=== PATIENT | female | born 1930 | race Caucasian/White ===

== ENCOUNTER 2017-10-16 14:13 | Inpatient (IN) ==
[2017-10-16] MEDS ORDERED: Ipratropium/Albuterol Neb 3 ML IH ONE (14:16)
--- NOTE | 2017-10-16 14:21 | Emergency Department Note ---
Disposition Clinical Impression: Healthcare-associated pneumonia Disposition: Admitted As Inpatient Condition: Good Referrals: Frank Hodge Jr, MD [Primary Care Provider] - Forms: ED Satisfaction Letter SOB HPI - General Chief Complaint: ED Shortness of Breath/Dyspnea Stated Complaint: shortness of breath Time Seen by Provider: 10/16/17 14:15 Source: patient Mode of arrival: EMS Limitations: age Nursing Notes Reviewed: Yes Vital Signs Reviewed: Yes - History of Present Illness 87-year-old female history of CVA, hypertension, hyperlipidemia, CHF, COPD who presents to the ER from residential facility due to shortness of breath. EMS reports cough for 3 days in duration without production. Upon arrival the patient was noted to be 90% on room air with no prior requirement for oxygen. She was placed on 2 L given a breathing treatment. Oxygen saturation improved. Patient brought in for evaluation. She is alert and oriented 2. She is a poor historian. She currently denies any complaints. Pt Subjective Complaint: shortness of breath, cough Onset (ago): day(s) Context: recent illness Severity: mild Consistency/Duration: other Improves with: nothing Worsens with: nothing Known history of: COPD, congestive heart failure Associated symptoms: Reports: denies other symptoms Treatment prior to arrival: oxygen, bronchodilator Cough present: Yes Cough Description: Involuntary Cough Frequency: Intermittent Sputum production: No Sputum Amount: None - Related Data Home oxygen amount: none Home Medications Medication Instructions Recorded Confirmed Clopidogrel [Plavix] 75 mg PO DAILY 12/10/15 10/16/17 Cyanocobalamin (Vitamin B-12) 1,000 mcg IM QMONTH 12/10/15 10/16/17 [B-12 Compliance] Felodipine [Felodipine ER] 2.5 mg PO DAILY 12/10/15 10/16/17 Furosemide [Lasix] 20 mg PO DAILY 12/10/15 10/16/17 Losartan [Cozaar] 50 mg PO BID 12/10/15 10/16/17 Simvastatin [Zocor] 20 mg PO HS 12/10/15 10/16/17 Terazosin [Hytrin] 5 mg PO DAILY 12/10/15 10/16/17 Albuterol Neb [Proventil Neb] 2.5 mg IH Q6H PRN 07/07/16 10/16/17 DiphenhydraMINE [Benadryl] 25 mg PO HS PRN 10/16/17 10/16/17 Donepezil HCl [Aricept] 10 mg PO HS 10/16/17 10/16/17 Memantine HCl [Namenda Xr] 21 mg PO DAILY 10/16/17 10/16/17 Propranolol LA (24 HR) [Inderal LA] 60 mg PO DAILY 10/16/17 10/16/17 Allergies Allergy/AdvReac Type Severity Reaction Status Date / Time No Known Allergies Allergy Verified 07/07/16 14:27 All systems ED: reviewed and negative except as stated. Constitutional: Denies: fever Cardiovascular: Denies: chest pain Respiratory: Reports: cough, dyspnea Gastrointestinal: Denies: abdominal pain, nausea, vomiting Past Medical History - Past Medical History Attestation: Yes The following information was validated with the patient. Source: patient, old records reviewed Medical history: Reports: COPD, dementia, hyperlipidemia, hypertension, myocardial infarction, TIA, other Surgical history: Reports: other Psychiatric history: Reports: no psych history - Social History Smoking Status: Never smoker Alcohol use: Reports: none Drug use: Reports: none Physical Exam - General Limitations: no limitations General appearance: alert, in no apparent distress - Head Head exam: atraumatic, normocephalic - Eye Eye exam: Present: normal appearance - ENT ENT exam: normal exam - Neck Neck exam: Present: normal inspection, full ROM - Chest Chest inspection: Present: normal inspection, symmetric chest wall rise - Respiratory Respiratory exam: Present: wheezes (Mild end-expiratory wheezing with bilateral rhonchi.). Absent: respiratory distress, prolonged expiratory phase - Cardiovascular Cardiovascular exam: Present: regular rate, normal rhythm, normal heart sounds - Abdominal Exam Abdominal exam: Present: soft, Non-Tender. Absent: tenderness - Extremities Exam Extremities exam: Present: normal inspection, full ROM - Expanded Upper Extremity Exam Shoulder exam: Present: normal inspection, full ROM Arm exam: Present: normal inspection, full ROM Elbow exam: Present: normal inspection, full ROM Forearm/Wrist exam: Present: normal inspection, full ROM Hand exam: Present: normal inspection, full ROM - Expanded Lower Extremity Exam Hip/Pelvis exam: Present: normal inspection, full ROM Upper leg exam: Present: normal inspection, full ROM Knee exam: Present: normal inspection, full ROM Lower leg exam: Present: normal inspection, full ROM Ankle exam: Present: normal inspection, full ROM Foot/toe exam: Present: normal inspection, full ROM Neurovascular/Tendon exam: Absent: motor deficit, sensory deficit - Neurological Exam Neurological exam: Present: alert, other (Alert and oriented 2. She answers most questions with no however she is interactive. GCS 15. Nonfocal exam.) - Psychiatric Psychiatric exam: Present: normal affect - Skin Skin exam: Present: warm, dry, intact Course Course Narrative: Patient seen and examined. We will obtain an EKG, chest x-ray as well as labs. 2 additional DuoNeb treatments ordered. - Reevaluation(s) Reevaluation #1: I spoke with a family friend in the [place] about the patient's current status. Patient will be admitted for pneumonia. Friend reports she will be around for a while. Vital Signs Temperature 99.5 F 10/16/17 14:14 Pulse Rate 85 10/16/17 14:14 Respiratory Rate 18 10/16/17 14:14 Blood Pressure 149/77 10/16/17 14:14 O2 Sat by Pulse Oximetry 92 10/16/17 14:14 Temperature 99.5 F 10/16/17 14:14 Pulse Rate 75 10/16/17 19:44 Respiratory Rate 18 10/16/17 19:44 Blood Pressure 148/71 10/16/17 19:44 O2 Sat by Pulse Oximetry 94 10/16/17 19:44 Oxygen Delivery Oxygen Delivery Nasal Cannula Shortness of Breath/Dyspnea - [facility] Narrative Medical decision making narrative: 87-year-old female presents to the ER due to cough and shortness of breath for 3 days. From residential facility. She is a poor historian here. Noted to be 90% on room air upon EMS arrival. On 2 L saturating 95-97%. EKG dementias no ischemic findings. Chest x-ray with concern for developing bilateral lower lobe pneumonia. White count of 17. Patient given vancomycin and Zosyn and Levaquin and admitted for healthcare associated pneumonia. - Lab Data Lab results reviewed: Yes I reviewed the patient's lab results. Result diagrams: 10/16/17 14:33 10/16/17 14:33 Lab Results 10/16/17 10/16/17 10/16/17 Range/Units 14:33 14:33 14:33 WBC 17.0 H (4.3-11.1) K/mcL RBC 3.34 L (3.82-4.97) M/mcL Hgb 10.3 L (11.5-15.4) g/dL Hct 32.5 L (35.3-44.9) % MCV 97.3 (83.0-100.0) fL MCH 30.8 (28.0-33.3) pg MCHC 31.7 (31.6-35.5) g/dL RDW 12.8 (11.5-14.5) % Plt Count 374 (140-400) K/mcL MPV 10.9 (9.4-12.4) fL Immature Gran % 1.2 (0-4) % Seg Neutrophils % 89.0 % Lymphocytes % 2.1 % Monocytes % 7.4 % Eosinophils % 0.2 % Basophils % 0.1 % Neutrophils # 15.1 H (1.6-8.9) K/mcL Lymphocytes # 0.4 L (0.6-4.6) K/mcL Monocytes # 1.3 (0.0-1.3) K/mcL Eosinophils # 0.0 (0.0-0.6) K/mcL Basophils # 0.0 (0.0-0.2) K/mcL Sodium 139 (136-145) mEq/L Potassium 3.5 (3.5-5.1) mEq/L Chloride 99 (98-107) mEq/L Carbon Dioxide 34 H (23-29) mEq/L BUN 6 L (8-23) mg/dL Creatinine 0.58 L (0.60-1.20) mg/dL Est GFR ( Amer) > 60 (> 60) Est GFR (Non-Af Amer) > 60 (> 60) BUN/Creatinine Ratio 10 (6-26) Glucose 175 H (70-105) mg/dL Calculated Osmolality 290 (280-300) Lactic Acid (0.5-2.2) mmol/L Calcium 8.7 (8.6-10.3) mg/dL Troponin I < 0.03 (< 0.04) ng/mL B-Natriuretic Peptide (Less than 100) pg/mL 10/16/17 10/16/17 Range/Units 14:33 15:48 WBC (4.3-11.1) K/mcL RBC (3.82-4.97) M/mcL Hgb (11.5-15.4) g/dL Hct (35.3-44.9) % MCV (83.0-100.0) fL MCH (28.0-33.3) pg MCHC (31.6-35.5) g/dL RDW (11.5-14.5) % Plt Count (140-400) K/mcL MPV (9.4-12.4) fL Immature Gran % (0-4) % Seg Neutrophils % % Lymphocytes % % Monocytes % % Eosinophils % % Basophils % % Neutrophils # (1.6-8.9) K/mcL Lymphocytes # (0.6-4.6) K/mcL Monocytes # (0.0-1.3) K/mcL Eosinophils # (0.0-0.6) K/mcL Basophils # (0.0-0.2) K/mcL Sodium (136-145) mEq/L Potassium (3.5-5.1) mEq/L Chloride (98-107) mEq/L Carbon Dioxide (23-29) mEq/L BUN (8-23) mg/dL Creatinine (0.60-1.20) mg/dL Est GFR ( Amer) (> 60) Est GFR (Non-Af Amer) (> 60) BUN/Creatinine Ratio (6-26) Glucose (70-105) mg/dL Calculated Osmolality (280-300) Lactic Acid 0.7 (0.5-2.2) mmol/L Calcium (8.6-10.3) mg/dL Troponin I (< 0.04) ng/mL B-Natriuretic Peptide 249 H (Less than 100) pg/mL - Radiology Data Radiology results reviewed: Yes I reviewed the patient's radiology results. Chest X-Ray 10/16/17 14:16 IMPRESSION: Airspace opacities at the bilateral lung bases, right more than left, likely related to atelectasis versus pneumonia. Small right pleural effusion. D/ / Parth Kim MD / Parth Kim MD Interpreting Provider: Parth Kim MD - EKG Data EKG attestation: Yes I reviewed and interpreted this EKG. EKG results narrative: EKG demonstrated sinus rhythm with the rate of 82 bpm. Right axis deviation. Poor R-wave progression. Normal intervals. No gross ST elevations or depressions. No acute ischemic findings. Harmony - Harmony Situation: Demographics, MOA Background: Presenting Complaint, Relevant PMH, Meds, & Allergies Assessment: Vital Signs, Course and respsone to treatment, Exam Concerns, Patient/Family Expectation, Pertinant Lab Results Recommendation: Barrier(s) to disposition, Recommendation based on pending studies, treatments, or consults Harmony Report Given to: Dr. Eb Antunez Repor Time: 19:49
--- NOTE | 2017-10-16 14:23 | Emergency Department Note ---
START Narrative - START START: I examined this patient and my medical decision-making was reviewed with the SENIOR ENGINEERING MANAGER/PA/Advanced Practice Nurse/Resident Physician. I agree with the documented findings, disposition and treatment plan as described except to the extent set forth below. ED attending: Patient's emergency medicine resident Dr. Delfino Headley. Please see copy of this note for H&P evaluation and management and ED disposition. We both had independent [id number] time in contact with this patient. Briefly: 87-year-old female I EMS from [facility] facility for shortness of breath. Patient is a dry cough for several days. No fever or sputum no chest pain patient has advanced senile dementia and answers "no" to most questions. Mild expiratory wheezes [facility]. Patient will get chest x-ray EKG screening labs and urinalysis. Disposition pending.
[2017-10-16 14:45] LABS: Basophils % 0.1 %; Eosinophils % 0.2 %; Hematocrit 32.5 % (35.3-44.9); Hemoglobin 10.3 g/dL (11.5-15.4); Immature Granulocytes % 1.2 % (0-4); Lymphocytes # 0.4 K/mcL (0.6-4.6); Lymphocytes % 2.1 %; Mean Corpuscular HGB Conc 31.7 g/dL (31.6-35.5); Mean Corpuscular Hemoglobin 30.8 pg (28.0-33.3); Mean Corpuscular Volume 97.3 fL (83.0-100.0); Mean Platelet Volume 10.9 fL (9.4-12.4); Monocytes # 1.3 K/mcL (0.0-1.3); Monocytes % 7.4 %; Neutrophils # 15.1 K/mcL (1.6-8.9); Platelet Count 374 K/mcL (140-400); Red Blood Count 3.34 M/mcL (3.82-4.97); Red Cell Distribution Width 12.8 % (11.5-14.5)
[2017-10-16 15:00] LABS: BUN/Creatinine Ratio 10 (6-26); Blood Urea Nitrogen 6 mg/dL (8-23); Calcium 8.7 mg/dL (8.6-10.3); Carbon Dioxide 34 mEq/L (23-29); Chloride 99 mEq/L (98-107); Glucose 175 mg/dL (70-105); Osmolality,Calculated 290 (280-300); Potassium 3.5 mEq/L (3.5-5.1); Sodium 139 mEq/L (136-145); eGFR For African Americans > 60 (> 60); eGFR For Non-African Americans > 60 (> 60)
[2017-10-16] MEDS ORDERED: Vancomycin 1,000 MG in D5% in Water 250 ML IVPB ONE (15:27)
[2017-10-16] MEDS ORDERED: Levofloxacin 750 MG/150 ML 750 MG/150 ML BAG IVPB ONE (15:27)
[2017-10-16] MEDS ORDERED: Piperacillin/Tazobactam 3.375 GM in Water for inj. (sterile) 20 ML IVP ONE (15:27)
[2017-10-16] MEDS ORDERED: Naloxone 0.4 MG/ML INJ IVP PRN (20:24)
[2017-10-16] MEDS ORDERED: Acetaminophen 325 MG TABLET PO PRN (20:24)
[2017-10-16] MEDS ORDERED: Ondansetron ODT 4 MG TAB.RAPDIS SL PRN (20:24)
[2017-10-16] MEDS ORDERED: Ipratropium/Albuterol Neb 3 ML IH PRN (20:28)
[2017-10-16] MEDS ORDERED: Memantine Hcl [Namenda Xr] 21 MG PO SCH (20:45)
--- NOTE | 2017-10-16 20:59 | Internal Med History&Physical ---
<Gustavo Carrillo - Last Filed: 10/16/17 21:59> Date of Encounter: 10/16/17 Time of Encounter: 20:00 Assessment and Plan (1) COPD (chronic obstructive pulmonary disease) Current visit: Yes Status: Acute Q4H Duonebs PRN. Pt breathing comfortably in bed. On 2L O2 nasal cannula, titrate to saturate ~92% Qualifiers: COPD type: unspecified COPD Qualified Code(s): J44.9 - Chronic obstructive pulmonary disease, unspecified (2) Healthcare-associated pneumonia Current visit: Yes Status: Acute Suspect pneumonia, will treat with vanc/cefepime. (3) Dementia Current visit: No Status: Acute Will continue Aricept/Memantine. Swallow eval through speech consult in setting of dementia and pneumonia. Qualifiers: Dementia type: unspecified type Dementia behavioral disturbance: with behavioral disturbance Qualified Code(s): F03.91 - Unspecified dementia with behavioral disturbance (4) Cerebrovascular disease Current visit: No Status: Chronic Will continue home meds. No focal deficits. Swallow eval in AM. (5) Hypertension Current visit: Yes Status: Acute On Inderal Qualifiers: Hypertension type: essential hypertension Qualified Code(s): I10 - Essential (primary) hypertension (6) Hyperlipidemia Current visit: No Status: Chronic On Zocor. Qualifiers: Hyperlipidemia type: pure hypercholesterolemia Qualified Code(s): E78.00 - Pure hypercholesterolemia, unspecified; E78.0 - Pure hypercholesterolemia (7) DVT prophylaxis Current visit: Yes Status: Acute Pneumatic compression. Internal Medicine - H&P: HPI Admitted From: Long-term Nursing Facility Plans for Post Hospital Care: [facility] History of present illness: Ms. Obrien is a 87 year old female with past medical history of cerebrovascular disease, dementia, HTN, HLD, CHF, COPD not on home O2, presents from SNF by EMS for 3 days of cough and worsening ihsan. Pt was saturating at 90% SPO2 on room air on presentation, responded to 2L nasal cannula. CXR showed bilateral lower lobe atelectasis versus PNA. Patient is a limited historian, conversant, A&Ox2, currently patient denies n/v/ diarrhea, fever, chest discomfort, bleed, is lying on side comfortably, saturating well. Mild productive cough during encounter. Past Med Surg Social Fam HX - Past Medical History Medical history: COPD, dementia, hyperlipidemia, hypertension, myocardial infarction, TIA, other Psychiatric history: no psych history - Past Surgical History Surgical History: other - Social History Smoking Status: Never smoker Alcohol use: none Drug use: none - Family History Mother History Unknown: Yes Internal Medicine - H&P: Meds Clopidogrel [Plavix] 75 mg PO DAILY 12/10/15 [History] Cyanocobalamin (Vitamin B-12) [B-12 Compliance] 1,000 mcg IM QMONTH 12/10/15 [ History] Felodipine [Felodipine ER] 2.5 mg PO DAILY 12/10/15 [History] Furosemide [Lasix] 20 mg PO DAILY 12/10/15 [History] Losartan [Cozaar] 50 mg PO BID 12/10/15 [History] Simvastatin [Zocor] 20 mg PO HS 12/10/15 [History] Terazosin [Hytrin] 5 mg PO DAILY 12/10/15 [History] Albuterol Neb [Proventil Neb] 2.5 mg IH Q6H PRN 07/07/16 [History] DiphenhydraMINE [Benadryl] 25 mg PO HS PRN 10/16/17 [History] Donepezil HCl [Aricept] 10 mg PO HS 10/16/17 [History] Memantine HCl [Namenda Xr] 21 mg PO DAILY 10/16/17 [History] Propranolol LA (24 HR) [Inderal LA] 60 mg PO DAILY 10/16/17 [History] 3 Allergy/AdvReac Type Severity Reaction Status Date / Time No Known Allergies Allergy Verified 07/07/16 14:27 All Systems PM: A 10-system review of systems was performed and is negative for pertinent findings except as documented above in the HPI. - Constitutional Vitals: Temp Pulse Resp BP Pulse Ox 99.5 F 75 18 148/71 94 10/16/17 14:14 10/16/17 19:44 10/16/17 19:44 10/16/17 19:44 10/16/17 19:44 General appearance: Present: A&O X 2, pleasant, no acute distress - Head Head exam: Present: atraumatic - ENT ENT exam: Present: mucous membranes moist - Neck Neck exam general surgery: Present: full ROM - Respiratory Respiratory exam: Present: CTAB. Absent: rhonchi - Cardiovascular Cardiovascular exam: Present: RRR, +S1, +S2. Absent: JVD - Extremities Exam Extremities exam: Absent: calf tenderness Internal Med - H&P Results - Labs CBC & Chem 7: 10/16/17 14:33 10/16/17 14:33 Labs: Short CBC 10/16/17 Range/Units 14:33 WBC 17.0 H (4.3-11.1) K/mcL Hgb 10.3 L (11.5-15.4) g/dL Hct 32.5 L (35.3-44.9) % Plt Count 374 (140-400) K/mcL Neutrophils # 15.1 H (1.6-8.9) K/mcL BMP 10/16/17 14:33 Sodium 139 Potassium 3.5 Chloride 99 Carbon Dioxide 34 H BUN 6 L Creatinine 0.58 L Glucose 175 H Calcium 8.7 Cardiac Enzymes 10/16/17 Range/Units 14:33 Troponin I < 0.03 (< 0.04) ng/mL - Impressions ITS Impressions Chest X-Ray 10/16/17 14:16 IMPRESSION: Airspace opacities at the bilateral lung bases, right more than left, likely related to atelectasis versus pneumonia. Small right pleural effusion. D/ / Parth Kim MD / Parth Kim MD Interpreting Provider: Parth Kim MD <Sara Parson - Last Filed: 10/16/17 23:29> Date of Encounter: 10/16/17 Internal Medicine - H&P: HPI History of present illness: Ms. Obrien is a 87 year old female All Systems PM: A 10-system review of systems was performed and is negative for pertinent findings except as documented above in the HPI. - Constitutional Vitals: Temp Pulse Resp BP Pulse Ox 98.7 F 81 16 155/72 91 10/16/17 23:20 10/16/17 23:20 10/16/17 23:20 10/16/17 23:20 10/16/17 23:20 Internal Med - H&P Results - Labs CBC & Chem 7: 10/16/17 14:33 10/16/17 14:33 - Attending Attestation 87 yo female with severe/moderate dementia who presents from SNF for hypoxemia in low 90s on RA. She is confused due to dementia. Denies review to include SOB, fever/chills/ weakness/diarrhea/cough. Has been in senior care since 2016 General - AA x 2 Psych - Appropriate affect/speech. No agitation Eyes - YRN. Eye lids intact. No scleral icterus Heart - Sinus. RRR. S1 and S2 present. No added HS/murmurs appreciated. No elevated JVD appreciated. Lung - Adequate air entry b/l, Bibasal crackles with decreased air entry GI - Soft, non-tender. No hepatosplenomegaly/ascites. BS+ - No CVA/suprapubic tenderness or palpable bladder distension Skin - Intact. No rash/petechiae/ecchymosis. Warm extremities MSK - Joints with normal ROM. No joint swellings ROS 14 point review of systems reviewed as best as possible given presentation. Pertinent positive or negative as per HPI or otherwise reviewed as negative EKG reviewed by self with rate 82, NSR A/P PNA Hypoxia - acute respiratory failure - treat HAP with van and cefepime IV, check Van trough with IV vanco - duonebs -speech eval to r/o silent aspiration - check pneumoccoal serologies Acute bronchitis - duonebs Moderate/severe dementia
[2017-10-16] MEDS ORDERED: Vancomycin 1,000 MG in D5% in Water 250 ML IVPB SCH (21:00)
[2017-10-16] MEDS: Propranolol LA (24 HR) 60 MG CAP.SA.24H PO SCH (23:18)
[2017-10-16] MEDS: Cefepime HCl 1,000 MG in Water for inj. (sterile) 10 ML IVP SCH (23:20)
[2017-10-16] MEDS ORDERED: 0.9 % Sodium Chloride 1,000 ML IVC SCH (23:45)
[2017-10-17] MEDS ORDERED: Cefepime HCl 1,000 MG in D5% in Water (Mini-Bag+) 100 ML IVPB SCH
[2017-10-17 04:51] LABS: Basophils % 0.2 %; Eosinophils # 0.1 K/mcL (0.0-0.6); Eosinophils % 0.9 %; Hematocrit 31.7 % (35.3-44.9); Hemoglobin 9.9 g/dL (11.5-15.4); Immature Granulocytes % 1.7 % (0-4); Lymphocytes # 0.7 K/mcL (0.6-4.6); Lymphocytes % 5.4 %; Mean Corpuscular HGB Conc 31.2 g/dL (31.6-35.5); Mean Corpuscular Volume 99.4 fL (83.0-100.0); Mean Platelet Volume 10.9 fL (9.4-12.4); Monocytes # 1.7 K/mcL (0.0-1.3); Monocytes % 13.3 %; Neutrophils # 9.9 K/mcL (1.6-8.9); Platelet Count 316 K/mcL (140-400); Red Blood Count 3.19 M/mcL (3.82-4.97); Red Cell Distribution Width 12.6 % (11.5-14.5); Segmented Neutrophils % 78.5 %
[2017-10-17 04:59] LABS: BUN/Creatinine Ratio 13 (6-26); Blood Urea Nitrogen 7 mg/dL (8-23); Calcium 8.6 mg/dL (8.6-10.3); Carbon Dioxide 35 mEq/L (23-29); Chloride 99 mEq/L (98-107); Glucose 125 mg/dL (70-105); Osmolality,Calculated 289 (280-300); Potassium 3.7 mEq/L (3.5-5.1); Sodium 140 mEq/L (136-145); eGFR For African Americans > 60 (> 60); eGFR For Non-African Americans > 60 (> 60)
[2017-10-17] MEDS: FELODIPINE 2.5 MG PO SCH ×2 (05:19→09:17)
[2017-10-17] MEDS ORDERED: Vancomycin 750 MG in D5% in Water 250 ML IVPB SCH (06:00)
--- NOTE | 2017-10-17 06:46 | Electrocardiograph Report ---
[facility] Test Date: 2017-10-16 Pat Name: Yamini Obrien Department: 103 Room: 2A34 Gender: F Urologist: EKP : 1930 Requested By: Delfino Headley Order Number: [id number] Reading MD: Marcelino Slaughter MD Measurements Intervals [place] Rate: 82 P: 168 AK: 140 QRS: 214 QRSD: 90 T: 176 QT: 379 QTc: 417 Interpretive Statements SINUS RHYTHM Electronically Signed On 10-17-2017 6:44:32 EST by Marcelino Slaughter MD
[2017-10-17] MEDS: Cefepime HCl 1,000 MG in Water for inj. (sterile) 10 ML IVP SCH (09:15)
[2017-10-17] MEDS: Propranolol LA (24 HR) 60 MG CAP.SA.24H PO SCH (09:16)
--- NOTE | 2017-10-17 14:36 | Internal Med Progress Note ---
Date of Encounter: 10/17/17 Time of Encounter: 11:40 - Assessment and plan (1) Pneumonia Current Visit: Yes Status: Suspected Assessment and plan: Patient with right lower lobe pneumonia. Being treated with broad-spectrum antibiotics as she is a long term resident. Will await culture results. Clinically appears to be doing better. WBC count is improving. Moderate risk for complications. We will add Levaquin for atypical coverage Qualifiers: Pneumonia type: due to methicillin-sensitive Staphylococcus aureus (MSSA) Laterality: right Lung location: lower lobe of lung Qualified Code(s): J15.211 - Pneumonia due to Methicillin susceptible Staphylococcus aureus (2) COPD (chronic obstructive pulmonary disease) Current Visit: Yes Status: Acute Assessment and plan: Not currently in exacerbation. Continue bronchodilators as needed. O2 supplementation as needed Qualifiers: COPD type: unspecified COPD Qualified Code(s): J44.9 - Chronic obstructive pulmonary disease, unspecified (3) Dementia Current Visit: Yes Status: Chronic Assessment and plan: Chronic dementia. Stable. Continue Aricept and Namenda Qualifiers: Dementia type: unspecified type Dementia behavioral disturbance: without behavioral disturbance Qualified Code(s): F03.90 - Unspecified dementia without behavioral disturbance (4) Healthcare-associated pneumonia Current Visit: Yes Status: Acute (5) Hyperlipidemia Current Visit: Yes Status: Chronic Assessment and plan: Continue simvastatin Qualifiers: Hyperlipidemia type: pure hypercholesterolemia Qualified Code(s): E78.00 - Pure hypercholesterolemia, unspecified; E78.0 - Pure hypercholesterolemia (6) Hypertension Current Visit: Yes Status: Chronic Assessment and plan: Better controlled today. Continue losartan and Inderal Qualifiers: Hypertension type: essential hypertension Qualified Code(s): I10 - Essential (primary) hypertension (7) DVT prophylaxis Current Visit: Yes Status: Acute Assessment and plan: Will start subcutaneous heparin - Subjective Interval history: Patient is awake and alert. Sitting up in bed. Doing well overall. Denies any new complaints at this time. No nausea or vomiting. No chest pain. Shortness of breath has significantly improved. No fever or chills reported. - Constitutional Vitals: Temp Pulse Resp BP Pulse Ox 97.9 F 71 16 126/65 95 10/17/17 11:15 10/17/17 11:15 10/17/17 11:15 10/17/17 11:15 10/17/17 11:15 General appearance: Present: A&O X 2, pleasant, no acute distress, answers questions appropriately - Neck Neck exam general surgery: Present: supple, trachea midline. Absent: lymphadenopathy - Respiratory Respiratory exam: Absent: accessory muscle use, rales, rhonchi, wheezes Additional comments: Coarse breath sounds in right lower lobe - Cardiovascular Cardiovascular exam: Present: RRR, +S1, +S2, systolic murmur. Absent: diastolic murmur, gallop, rubs - Extremities Exam Extremities exam: Present: warm, radial pulses palpable and symmetrical. Absent : calf tenderness, cyanotic, pedal edema - Neurological Exam Neurological exam: Present: CN II-XII intact, oriented X3, no focal deficits. Absent: facial droop, speech deficit - Skin Skin exam: Present: dry, intact Internal Medicine: Result - Labs CBC & Chem 7: 10/17/17 04:25 10/17/17 04:25 Labs: Short CBC 10/17/17 Range/Units 04:25 WBC 12.6 H (4.3-11.1) K/mcL Hgb 9.9 L (11.5-15.4) g/dL Hct 31.7 L (35.3-44.9) % Plt Count 316 (140-400) K/mcL Neutrophils # 9.9 H (1.6-8.9) K/mcL BMP 10/17/17 04:25 Sodium 140 Potassium 3.7 Chloride 99 Carbon Dioxide 35 H BUN 7 L Creatinine 0.55 L Glucose 125 H Calcium 8.6 Consult Discharge Plan - Plan Referrals: Frank Hodge Jr, MD [Primary Care Provider] -
[2017-10-17] MEDS: Cefepime HCl 2,000 MG in Water for inj. (sterile) 20 ML IVP SCH (15:28)
[2017-10-17] MEDS: Levofloxacin 750 MG/150 ML 750 MG/150 ML BAG IVPB SCH (15:29)
[2017-10-17] MEDS: *HR* Heparin 5,000 UNIT/ML VIAL SQ SCH (17:10)
[2017-10-17 17:43] LABS: Adenovirus Not Detected (Not Detect); Bordetella Pertussis Not Detected (Not Detect); Chlamydophila pneumoniae Not Detected (Not Detect); Coronavirus 229E Not Detected (Not Detect); Coronavirus HKU1 Not Detected (Not Detect); Coronavirus NL63 Not Detected (Not Detect); Coronavirus OC43 Not Detected (Not Detect); Human Metapneumovirus Not Detected (Not Detect); Human Rhinovirus/Enterovirus Not Detected (Not Detect); Influenza A Subtype 2009 H1 Not Detected (Not Detect); Influenza A Untypeable Not Detected (Not Detect); Influenza B Not Detected (Not Detect); Mycoplasma pneumoniae Not Detected (Not Detect); Parainfluenza Virus 1 Not Detected (Not Detect); Parainfluenza Virus 2 Not Detected (Not Detect); Parainfluenza Virus 3 Not Detected (Not Detect); Parainfluenza Virus 4 Not Detected (Not Detect); Respiratory Syncytial Virus Not Detected (Not Detect)
[2017-10-17] MEDS: Lactobacillus 1 EACH CAP.SPRINK PO SCH (20:33)
[2017-10-17] MEDS ORDERED: Cefepime HCl 2,000 MG in Water for inj. (sterile) 20 ML IVP SCH (21:00)
[2017-10-18] MEDS: Cefepime HCl 2,000 MG in Water for inj. (sterile) 20 ML IVP SCH ×2 (00:13→12:06)
[2017-10-18 04:19] LABS: Basophils % 0.2 %; Eosinophils # 0.1 K/mcL (0.0-0.6); Eosinophils % 1.1 %; Hematocrit 33.7 % (35.3-44.9); Hemoglobin 10.5 g/dL (11.5-15.4); Immature Granulocytes % 1.4 % (0-4); Lymphocytes # 0.9 K/mcL (0.6-4.6); Lymphocytes % 6.5 %; Mean Corpuscular HGB Conc 31.2 g/dL (31.6-35.5); Mean Corpuscular Hemoglobin 31.3 pg (28.0-33.3); Mean Corpuscular Volume 100.3 fL (83.0-100.0); Mean Platelet Volume 11.2 fL (9.4-12.4); Monocytes # 1.6 K/mcL (0.0-1.3); Monocytes % 11.9 %; Neutrophils # 10.4 K/mcL (1.6-8.9); Platelet Count 329 K/mcL (140-400); Red Blood Count 3.36 M/mcL (3.82-4.97); Red Cell Distribution Width 12.6 % (11.5-14.5); Segmented Neutrophils % 78.9 %
[2017-10-18 04:35] LABS: Chloride 99 mEq/L (98-107); Potassium 3.6 mEq/L (3.5-5.1); Sodium 139 mEq/L (136-145)
[2017-10-18 05:04] LABS: BUN/Creatinine Ratio 12 (6-26); Blood Urea Nitrogen 8 mg/dL (8-23); Calcium 8.6 mg/dL (8.6-10.3); Carbon Dioxide 33 mEq/L (23-29); Glucose 113 mg/dL (70-105); Osmolality,Calculated 287 (280-300); eGFR For African Americans > 60 (> 60); eGFR For Non-African Americans > 60 (> 60)
[2017-10-18] MEDS: *HR* Heparin 5,000 UNIT/ML VIAL SQ SCH ×2 (05:32→17:29)
[2017-10-18] MEDS: Vancomycin 1,250 MG in D5% in Water 250 ML IVPB SCH (05:33)
[2017-10-18] MEDS ORDERED: Levofloxacin 750 MG/150 ML 750 MG/150 ML BAG IVPB SCH (09:00)
[2017-10-18] MEDS: Propranolol LA (24 HR) 60 MG CAP.SA.24H PO SCH (09:26)
[2017-10-18] MEDS: Furosemide 20 MG TABLET PO SCH (09:26)
[2017-10-18] MEDS: Lactobacillus 1 EACH CAP.SPRINK PO SCH ×2 (09:26→20:33)
[2017-10-18] MEDS: FELODIPINE 2.5 MG PO SCH (09:27)
--- NOTE | 2017-10-18 12:23 | Internal Med Progress Note ---
Date of Encounter: 10/18/17 Time of Encounter: 11:10 - Assessment and plan (1) Pneumonia Current Visit: Yes Status: Acute Assessment and plan: Patient with right lower lobe pneumonia. Being treated with broad-spectrum antibiotics as she is a snf resident. Continue Vanco/Zosyn/Levaquin Blood culture prelim negative WBC count is improving. Continue current care Qualifiers: Pneumonia type: due to methicillin-sensitive Staphylococcus aureus (MSSA) Laterality: right Lung location: lower lobe of lung Qualified Code(s): J15.211 - Pneumonia due to Methicillin susceptible Staphylococcus aureus (2) Dementia Current Visit: Yes Status: Chronic Assessment and plan: Chronic dementia. Stable. Continue Aricept and Namenda Qualifiers: Dementia type: unspecified type Dementia behavioral disturbance: without behavioral disturbance Qualified Code(s): F03.90 - Unspecified dementia without behavioral disturbance (3) Hyperlipidemia Current Visit: Yes Status: Chronic Assessment and plan: Continue simvastatin Qualifiers: Hyperlipidemia type: pure hypercholesterolemia Qualified Code(s): E78.00 - Pure hypercholesterolemia, unspecified; E78.0 - Pure hypercholesterolemia (4) COPD (chronic obstructive pulmonary disease) Current Visit: Yes Status: Acute Assessment and plan: Not currently in exacerbation. Continue bronchodilators as needed. O2 supplementation as needed Qualifiers: COPD type: unspecified COPD Qualified Code(s): J44.9 - Chronic obstructive pulmonary disease, unspecified (5) Hypertension Current Visit: Yes Status: Chronic Assessment and plan: Better controlled today. Continue losartan and Inderal Qualifiers: Hypertension type: essential hypertension Qualified Code(s): I10 - Essential (primary) hypertension (6) DVT prophylaxis Current Visit: Yes Status: Acute Assessment and plan: Continue subcutaneous heparin - Subjective Interval history: Seen and examiend at bedside Pleasantly confused No new complains Being managed for HCAP - Constitutional Vitals: Temp Pulse Resp BP Pulse Ox 98.3 F 78 16 133/68 96 10/18/17 10:50 10/18/17 10:50 10/18/17 10:50 10/18/17 10:50 10/18/17 10:50 General appearance: Present: A&O X 2, pleasant, no acute distress, answers questions appropriately - Head Head exam: Present: atraumatic, normocephalic - Eye Eye exam: Present: PERRL, conjuntiva pink, sclera anicteric Pupils: Present: PERRL - Neck Neck exam general surgery: Present: supple, trachea midline. Absent: lymphadenopathy - Respiratory Additional comments: Coarse breath sounds in right lower lobe - Cardiovascular Cardiovascular exam: Present: RRR, +S1, +S2. Absent: diastolic murmur, gallop, rubs, systolic murmur - GI/Abdominal GI/Abdominal exam: Present: normal bowel sounds, soft, no peritoneal signs. Absent: distended, tenderness - Extremities Exam Extremities exam: Present: warm, radial pulses palpable and symmetrical. Absent : calf tenderness, cyanotic, pedal edema - Neurological Exam Neurological exam: Present: alert, CN II-XII intact, no focal deficits. Absent : oriented X3, pronater drift, facial droop, speech deficit - Skin Skin exam: Present: dry, intact Internal Medicine: Result - Labs CBC & Chem 7: 10/18/17 03:12 10/18/17 03:12 Labs: Short CBC 10/18/17 Range/Units 03:12 WBC 13.2 H (4.3-11.1) K/mcL Hgb 10.5 L (11.5-15.4) g/dL Hct 33.7 L (35.3-44.9) % Plt Count 329 (140-400) K/mcL Neutrophils # 10.4 H (1.6-8.9) K/mcL BMP 10/18/17 03:12 Sodium 139 Potassium 3.6 Chloride 99 Carbon Dioxide 33 H BUN 8 Creatinine 0.67 Glucose 113 H Calcium 8.6 Consult Discharge Plan - Plan Referrals: Frank Hodge Jr, MD [Primary Care Provider] -
[2017-10-18] MEDS: Levofloxacin 750 MG/150 ML 750 MG/150 ML BAG IVPB SCH (15:08)
[2017-10-19] MEDS ORDERED: Water for inj. (sterile) 20 ML IV ONE (00:37)
[2017-10-19] MEDS: Cefepime HCl 2,000 MG in Water for inj. (sterile) 20 ML IVP SCH ×2 (00:52→11:50)
[2017-10-19] MEDS: *HR* Heparin 5,000 UNIT/ML VIAL SQ SCH ×2 (05:32→17:53)
[2017-10-19] MEDS: Vancomycin 1,250 MG in D5% in Water 250 ML IVPB SCH (05:33)
[2017-10-19 08:07] LABS: Basophils % 0.3 %; Eosinophils # 0.2 K/mcL (0.0-0.6); Eosinophils % 1.2 %; Hematocrit 32.9 % (35.3-44.9); Hemoglobin 10.4 g/dL (11.5-15.4); Immature Granulocytes % 1.5 % (0-4); Lymphocytes # 0.9 K/mcL (0.6-4.6); Lymphocytes % 6.6 %; Mean Corpuscular HGB Conc 31.6 g/dL (31.6-35.5); Mean Corpuscular Hemoglobin 31.1 pg (28.0-33.3); Mean Corpuscular Volume 98.5 fL (83.0-100.0); Monocytes # 1.4 K/mcL (0.0-1.3); Monocytes % 10.8 %; Neutrophils # 10.6 K/mcL (1.6-8.9); Platelet Count 307 K/mcL (140-400); Red Blood Count 3.34 M/mcL (3.82-4.97); Red Cell Distribution Width 12.6 % (11.5-14.5); Segmented Neutrophils % 79.6 %
[2017-10-19 08:21] LABS: BUN/Creatinine Ratio 14 (6-26); Blood Urea Nitrogen 8 mg/dL (8-23); Calcium 8.6 mg/dL (8.6-10.3); Carbon Dioxide 35 mEq/L (23-29); Chloride 100 mEq/L (98-107); Glucose 179 mg/dL (70-105); Osmolality,Calculated 295 (280-300); Potassium 3.4 mEq/L (3.5-5.1); Sodium 141 mEq/L (136-145); eGFR For African Americans > 60 (> 60); eGFR For Non-African Americans > 60 (> 60)
[2017-10-19] MEDS: FELODIPINE 2.5 MG PO SCH (08:36)
[2017-10-19] MEDS: Propranolol LA (24 HR) 60 MG CAP.SA.24H PO SCH (08:41)
[2017-10-19] MEDS: Furosemide 20 MG TABLET PO SCH (08:41)
[2017-10-19] MEDS: Lactobacillus 1 EACH CAP.SPRINK PO SCH ×2 (08:41→19:11)
--- NOTE | 2017-10-19 13:09 | Internal Med Progress Note ---
Date of Encounter: 10/19/17 Time of Encounter: 13:06 - Assessment and plan (1) Pneumonia Current Visit: Yes Status: Acute Assessment and plan: Patient with right lower lobe pneumonia. Being treated with broad-spectrum antibiotics as she is a retirement resident. Blood culture prelim negative Descalate to levaquin only. -day 3 WBC count is stable at 13 Continue current care Qualifiers: Pneumonia type: due to unspecified organism Laterality: right Lung location: lower lobe of lung Qualified Code(s): J18.1 - Lobar pneumonia, unspecified organism (2) Dementia Current Visit: Yes Status: Chronic Assessment and plan: Chronic dementia. Stable. Continue Aricept and Namenda Qualifiers: Dementia type: unspecified type Dementia behavioral disturbance: without behavioral disturbance Qualified Code(s): F03.90 - Unspecified dementia without behavioral disturbance (3) Hyperlipidemia Current Visit: Yes Status: Chronic Assessment and plan: Continue simvastatin Qualifiers: Hyperlipidemia type: pure hypercholesterolemia Qualified Code(s): E78.00 - Pure hypercholesterolemia, unspecified; E78.0 - Pure hypercholesterolemia (4) COPD (chronic obstructive pulmonary disease) Current Visit: Yes Status: Chronic Assessment and plan: Not currently in exacerbation. Continue bronchodilators as needed. O2 supplementation as needed Qualifiers: COPD type: unspecified COPD Qualified Code(s): J44.9 - Chronic obstructive pulmonary disease, unspecified (5) Hypertension Current Visit: Yes Status: Chronic Assessment and plan: Better controlled today. Continue losartan and Inderal Qualifiers: Hypertension type: essential hypertension Qualified Code(s): I10 - Essential (primary) hypertension (6) DVT prophylaxis Current Visit: Yes Status: Acute Assessment and plan: Continue subcutaneous heparin - Subjective Interval history: Seen and examiend at bedside She was sleeping soundly but rousable When asked why she was not as lively as before, she stated "I'm just tired" She is being managed for HCAP She has been clinically stable and no undue findings on exam She is oriented to place and person this morning She is full code - Constitutional Vitals: Temp Pulse Resp BP Pulse Ox 98.0 F 67 15 144/60 97 10/19/17 12:13 10/19/17 12:13 10/19/17 12:13 10/19/17 12:13 10/19/17 12:13 General appearance: Present: A&O X 2, pleasant, no acute distress, answers questions appropriately - Head Head exam: Present: atraumatic, normocephalic - Eye Eye exam: Present: PERRL, conjuntiva pink, sclera anicteric Pupils: Present: PERRL - Neck Neck exam general surgery: Present: supple, trachea midline. Absent: lymphadenopathy - Respiratory Respiratory exam: Present: CTAB. Absent: accessory muscle use, rales, rhonchi, wheezes - Cardiovascular Cardiovascular exam: Present: RRR, +S1, +S2. Absent: diastolic murmur, gallop, rubs, systolic murmur - GI/Abdominal GI/Abdominal exam: Present: normal bowel sounds, soft, no peritoneal signs. Absent: distended, tenderness - Extremities Exam Extremities exam: Present: warm, radial pulses palpable and symmetrical. Absent : calf tenderness, cyanotic, pedal edema - Neurological Exam Neurological exam: Present: alert, CN II-XII intact, no focal deficits. Absent : oriented X3, pronater drift, facial droop, speech deficit - Skin Skin exam: Present: dry, intact Internal Medicine: Result - Labs CBC & Chem 7: 10/19/17 07:29 10/19/17 07:29 Labs: Short CBC 10/19/17 Range/Units 07:29 WBC 13.3 H (4.3-11.1) K/mcL Hgb 10.4 L (11.5-15.4) g/dL Hct 32.9 L (35.3-44.9) % Plt Count 307 (140-400) K/mcL Neutrophils # 10.6 H (1.6-8.9) K/mcL BMP 10/19/17 07:29 Sodium 141 Potassium 3.4 L Chloride 100 Carbon Dioxide 35 H BUN 8 Creatinine 0.59 L Glucose 179 H Calcium 8.6 Consult Discharge Plan - Plan Referrals: Frank Hodge Jr, MD [Primary Care Provider] -
[2017-10-19] MEDS ORDERED: Aminoglycoside Consult 1 EACH MC ONE (15:44)
[2017-10-19 18:13] LABS: ABG Base Excess 12 mEq/L (-2 to 3); ABG HCO3 38 mEq/L (21-27); ABG Oxygen Saturation 92 % (95-98); ABG PCO2 55 mmHg (35-45); ABG PH 7.45 pH Units (7.32-7.45); ABG PO2 63 mmHg (85-104); ABG TCO2 40 mEq/L (20-26)
[2017-10-20] MEDS: *HR* Heparin 5,000 UNIT/ML VIAL SQ SCH ×2 (05:38→17:35)
--- NOTE | 2017-10-20 09:25 | Internal Med Progress Note ---
<Jair Angela - Last Filed: 10/20/17 09:21> Date of Encounter: 10/20/17 Time of Encounter: 09:21 - Assessment and plan (1) Pneumonia Current Visit: Yes Status: Acute Assessment and plan: Patient admitted with worsening shortness of breath and cough requiring supplemental oxygen. Chest x-ray showed bilateral lower lobe atelectasis versus pneumonia. Afebrile, leukocytosis stable, requiring 1 L nasal cannula. Patient is on Levaquin day 4. Plan: Continue Levaquin for 1 additional day, duo nebs, weaning of oxygen. Patient will likely be discharged tomorrow to assisted living. Qualifiers: Pneumonia type: due to unspecified organism Laterality: right Lung location: lower lobe of lung Qualified Code(s): J18.1 - Lobar pneumonia, unspecified organism (2) COPD (chronic obstructive pulmonary disease) Current Visit: Yes Status: Chronic Assessment and plan: Patient is not in exacerbation. Continue duo nebs. Qualifiers: COPD type: unspecified COPD Qualified Code(s): J44.9 - Chronic obstructive pulmonary disease, unspecified (3) Dementia Current Visit: Yes Status: Chronic Assessment and plan: Chronic dementia. Stable. Continue Aricept and Namenda Benadryl listed on patient's home medication list. This will be discontinued upon discharge. Qualifiers: Dementia type: unspecified type Dementia behavioral disturbance: without behavioral disturbance Qualified Code(s): F03.90 - Unspecified dementia without behavioral disturbance (4) DVT prophylaxis Current Visit: Yes Status: Acute Assessment and plan: Continue subcutaneous heparin (5) Hyperlipidemia Current Visit: Yes Status: Chronic Assessment and plan: Continue simvastatin Qualifiers: Hyperlipidemia type: pure hypercholesterolemia Qualified Code(s): E78.00 - Pure hypercholesterolemia, unspecified; E78.0 - Pure hypercholesterolemia (6) Hypertension Current Visit: Yes Status: Chronic Assessment and plan: Blood pressure overnight has been elevated in the 160s systolic. Patient is on propranolol and losartan. We will increase losartan dose to 75 mg twice a day. Qualifiers: Hypertension type: essential hypertension Qualified Code(s): I10 - Essential (primary) hypertension - Subjective Interval history: This morning patient is awake and alert eating breakfast. She denies any chest pain, shortness of breath, cough, abdominal pain. Patient is not oriented to time, place, situation. According social group worker note patient lives at assisted living facility. She has a history of dementia and does not get assistance with receiving breathing treatments. She is assisted with taking her other medications. Unclear if patient is on oxygen outside of Hospital. Patient was evaluated by physical therapy and occupational therapy reports she does not need rehabilitation services. Patient can return to her prior region of assisted living. - Constitutional Vitals: Temp Pulse Resp BP Pulse Ox 98.2 F 70 16 160/67 96 10/20/17 07:02 10/20/17 07:02 10/20/17 07:02 10/20/17 07:02 10/20/17 07:02 General appearance: Present: A&O X 2, pleasant, no acute distress, answers questions appropriately - Other Additional findings: General: plesant without distress Heart: Regular rate and rhythm with no murmur Lungs: Diminished bilaterally with wheezing during inspiration Abdomen: Soft nontender, nondistended positive bowel sounds Skin: warm and dry Extremities: Absent pedal edema, Neuro: Alert and oriented to self. Not oriented to time, situation, place. Vascular: Pedal and radial pulses 2 out of 4 Internal Medicine: Result - Labs CBC & Chem 7: 10/19/17 07:29 10/19/17 07:29 - ABG Interpretation ABG results: ABG ABG pH 7.45 pH Units (7.32-7.45) 10/19/17 18:10 ABG pCO2 55 mmHg (35-45) H 10/19/17 18:10 ABG pO2 63 mmHg (85-104) L 10/19/17 18:10 ABG O2 Saturation 92 % (95-98) L 10/19/17 18:10 Consult Discharge Plan - Plan Referrals: Frank Hodge Jr, MD [Primary Care Provider] - <Raghu Szymanski - Last Filed: 10/20/17 13:17> Date of Encounter: 10/20/17 - Assessment and plan (1) Pneumonia Current Visit: Yes Status: Acute Qualifiers: Pneumonia type: due to unspecified organism Laterality: right Lung location: lower lobe of lung Qualified Code(s): J18.1 - Lobar pneumonia, unspecified organism (2) Dementia Current Visit: Yes Status: Chronic Qualifiers: Dementia type: unspecified type Dementia behavioral disturbance: without behavioral disturbance Qualified Code(s): F03.90 - Unspecified dementia without behavioral disturbance (3) Hyperlipidemia Current Visit: Yes Status: Chronic Qualifiers: Hyperlipidemia type: pure hypercholesterolemia Qualified Code(s): E78.00 - Pure hypercholesterolemia, unspecified; E78.0 - Pure hypercholesterolemia (4) COPD (chronic obstructive pulmonary disease) Current Visit: Yes Status: Chronic Qualifiers: COPD type: unspecified COPD Qualified Code(s): J44.9 - Chronic obstructive pulmonary disease, unspecified (5) Hypertension Current Visit: Yes Status: Chronic Qualifiers: Hypertension type: essential hypertension Qualified Code(s): I10 - Essential (primary) hypertension (6) DVT prophylaxis Current Visit: Yes Status: Acute - Constitutional Vitals: Temp Pulse Resp BP Pulse Ox 98.0 F 72 17 138/78 97 10/20/17 10:57 10/20/17 10:57 10/20/17 10:57 10/20/17 10:57 10/20/17 10:57 Internal Medicine: Result - Labs CBC & Chem 7: 10/20/17 09:41 10/19/17 07:29 Labs: Short CBC 10/20/17 Range/Units 09:41 WBC 13.7 H (4.3-11.1) K/mcL Hgb 10.7 L (11.5-15.4) g/dL Hct 34.2 L (35.3-44.9) % Plt Count 311 (140-400) K/mcL Neutrophils # 11.4 H (1.6-8.9) K/mcL - ABG Interpretation ABG results: ABG ABG pH 7.45 pH Units (7.32-7.45) 10/19/17 18:10 ABG pCO2 55 mmHg (35-45) H 10/19/17 18:10 ABG pO2 63 mmHg (85-104) L 10/19/17 18:10 ABG O2 Saturation 92 % (95-98) L 10/19/17 18:10 - Attending Attestation I have independently seen and examined this patient 10/20/17 Pleasantly confused, awake, alert, no new complains She is admitted and being managed for pneumonia, she is still on O2 Exam unremarkable Persistent leukocytosis in labs Continue Levaquin PTOT eval noted-for return to assisted living Possible D/C a.m, if clinical outcome remains stable Rest as in resident physician's documentation
[2017-10-20] MEDS: Propranolol LA (24 HR) 60 MG CAP.SA.24H PO SCH (09:47)
[2017-10-20] MEDS: FELODIPINE 2.5 MG PO SCH (09:47)
[2017-10-20] MEDS: Furosemide 20 MG TABLET PO SCH (09:47)
[2017-10-20] MEDS: Lactobacillus 1 EACH CAP.SPRINK PO SCH ×2 (09:47→19:58)
[2017-10-20 10:03] LABS: Basophils % 0.2 %; Eosinophils # 0.2 K/mcL (0.0-0.6); Eosinophils % 1.1 %; Hematocrit 34.2 % (35.3-44.9); Hemoglobin 10.7 g/dL (11.5-15.4); Immature Granulocytes % 1.1 % (0-4); Lymphocytes # 0.9 K/mcL (0.6-4.6); Lymphocytes % 6.6 %; Mean Corpuscular HGB Conc 31.3 g/dL (31.6-35.5); Mean Corpuscular Hemoglobin 31.2 pg (28.0-33.3); Mean Corpuscular Volume 99.7 fL (83.0-100.0); Mean Platelet Volume 11.1 fL (9.4-12.4); Monocytes # 1.1 K/mcL (0.0-1.3); Monocytes % 7.8 %; Neutrophils # 11.4 K/mcL (1.6-8.9); Platelet Count 311 K/mcL (140-400); Red Blood Count 3.43 M/mcL (3.82-4.97); Red Cell Distribution Width 12.7 % (11.5-14.5); Segmented Neutrophils % 83.2 %
[2017-10-20] MEDS ORDERED: Levofloxacin 750 MG/150 ML 750 MG/150 ML BAG IVPB SCH (15:00)
[2017-10-21 03:42] LABS: Basophils % 0.2 %; Eosinophils # 0.2 K/mcL (0.0-0.6); Eosinophils % 1.2 %; Hematocrit 32.4 % (35.3-44.9); Hemoglobin 10.1 g/dL (11.5-15.4); Immature Granulocytes % 0.9 % (0-4); Lymphocytes # 1.1 K/mcL (0.6-4.6); Lymphocytes % 7.9 %; Mean Corpuscular HGB Conc 31.2 g/dL (31.6-35.5); Mean Corpuscular Hemoglobin 30.8 pg (28.0-33.3); Mean Corpuscular Volume 98.8 fL (83.0-100.0); Mean Platelet Volume 10.7 fL (9.4-12.4); Monocytes # 1.5 K/mcL (0.0-1.3); Monocytes % 10.1 %; Neutrophils # 11.5 K/mcL (1.6-8.9); Platelet Count 303 K/mcL (140-400); Red Blood Count 3.28 M/mcL (3.82-4.97); Red Cell Distribution Width 12.6 % (11.5-14.5); Segmented Neutrophils % 79.7 %
[2017-10-21 04:01] LABS: BUN/Creatinine Ratio 23 (6-26); Blood Urea Nitrogen 15 mg/dL (8-23); Carbon Dioxide 35 mEq/L (23-29); Chloride 100 mEq/L (98-107); Glucose 121 mg/dL (70-105); Osmolality,Calculated 294 (280-300); Potassium 3.8 mEq/L (3.5-5.1); Sodium 141 mEq/L (136-145); eGFR For African Americans > 60 (> 60); eGFR For Non-African Americans > 60 (> 60)
[2017-10-21] MEDS: *HR* Heparin 5,000 UNIT/ML VIAL SQ SCH (05:42)
[2017-10-21] MEDS: FELODIPINE 2.5 MG PO SCH (08:00)
[2017-10-21] MEDS: Furosemide 20 MG TABLET PO SCH (08:11)
[2017-10-21] MEDS: Lactobacillus 1 EACH CAP.SPRINK PO SCH (08:11)
[2017-10-21] MEDS: Propranolol LA (24 HR) 60 MG CAP.SA.24H PO SCH (08:11)
--- NOTE | 2017-10-21 08:45 | Discharge Summary ---
<Jair Angela - Last Filed: 10/21/17 08:54> Date of Encounter: 10/21/17 Time of Encounter: 08:42 - Discharge Diagnosis (1) Pneumonia Priority: Primary Status: Acute Qualifiers: Pneumonia type: due to unspecified organism Laterality: right Lung location: lower lobe of lung Qualified Code(s): J18.1 - Lobar pneumonia, unspecified organism (2) COPD (chronic obstructive pulmonary disease) Priority: Secondary Status: Chronic Qualifiers: COPD type: unspecified COPD Qualified Code(s): J44.9 - Chronic obstructive pulmonary disease, unspecified (3) Dementia Priority: Secondary Status: Chronic Qualifiers: Dementia type: unspecified type Dementia behavioral disturbance: without behavioral disturbance Qualified Code(s): F03.90 - Unspecified dementia without behavioral disturbance (4) DVT prophylaxis Priority: Secondary Status: Acute (5) Hyperlipidemia Priority: Secondary Status: Chronic Qualifiers: Hyperlipidemia type: pure hypercholesterolemia Qualified Code(s): E78.00 - Pure hypercholesterolemia, unspecified; E78.0 - Pure hypercholesterolemia (6) Hypertension Priority: Secondary Status: Chronic Qualifiers: Hypertension type: essential hypertension Qualified Code(s): I10 - Essential (primary) hypertension - Discharge Medications Home Medications: Clopidogrel [Plavix] 75 mg PO DAILY 12/10/15 [History] Cyanocobalamin (Vitamin B-12) [B-12 Compliance] 1,000 mcg IM QMONTH 12/10/15 [ History] Felodipine [Felodipine ER] 2.5 mg PO DAILY 12/10/15 [History] Furosemide [Lasix] 20 mg PO DAILY 12/10/15 [History] Losartan [Cozaar] 50 mg PO BID 12/10/15 [History] Simvastatin [Zocor] 20 mg PO HS 12/10/15 [History] Terazosin [Hytrin] 5 mg PO DAILY 12/10/15 [History] Albuterol Neb [Proventil Neb] 2.5 mg IH Q6H PRN 07/07/16 [History] DiphenhydraMINE [Benadryl] 25 mg PO HS PRN 10/16/17 [History] Donepezil HCl [Aricept] 10 mg PO HS 10/16/17 [History] Memantine HCl [Namenda Xr] 21 mg PO DAILY 10/16/17 [History] Propranolol LA (24 HR) [Inderal LA] 60 mg PO DAILY 10/16/17 [History] Allergies/Adverse Reactions: 3 Allergy/AdvReac Type Severity Reaction Status Date / Time No Known Allergies Allergy Verified 07/07/16 14:27 Date of admission: 10/16/17 20:24 Primary care physician: Frank Hodge Jr, MD Consults: 10/16/17 20:49 Consult to Speech Therapy [CONS] Routine Comment: Evaluate, develop and implement POC Reason for Consult: Swallow eval in setting of dementia pt. Call Completed: No 10/17/17 16:04 Consult to Physical Therapy [CONS] Routine Comment: Evaluate, develop and implement POC Reason for Consult: placement need, weakness OT [Consult to Occupational Therapy] [CONS] Routine Comment: Evaluate, develop and implement POC Reason for Consult: placement need, weakness Discharging clinician: Jair Angela Anticipated date of discharge: 10/21/17 - Patient Status Disposition: Transfer Other Condition: Fair Functional capacity at discharge: uses cane/walker Overall status at discharge: patient is progressing back to baseline - Discharge Instructions Follow Up With: Frank Hodge Jr, MD [Primary Care Provider] - 10/27/17 10:00 am (Web Request 10/2017) - Diet and Activity Activity: as per physical therapy (Patient will benefit from daily walks with assistance ), increase activity as tolerated Diet: advance to your usual diet (With Magic cup supplementation) Hospital course: Ms. Obrien is a 87 year old female presented with chief complaint of shortness of breath. Patient has had worsening shortness of breath and cough for 3 days before admission. on arrival patient oxygen on room air was 90%. She was started on 2 L O2 via nasal cannula. Chest x-ray showed bilateral lower lobe atelectasis versus pneumonia. Patient started on broad-spectrum antibiotics Vanco and Zosyn, Levaquin. Blood cultures and Legionella and Streptococcus pneumonia antigens were collected. Patient was started on nebulizer treatments as well. Antibiotics were Descalated Levaquin as blood cultures and urine antigens were negative. Patient received 5 days total of antibiotics. She was able to be weaned off oxygen. PT/OT was consulted for evaluation of physical deconditioning. PT/OT states patient can be discharged back to her assisted living facility. Patient also has a history of dementia and takes Benadryl as a when necessary medication for sleep. This was discontinued as it increases risk of altered mental status and elderly. - Time Spent with Patient Total time spent providing and/or coordinating discharge services: - Constitutional Vitals: Temp Pulse Resp BP Pulse Ox 98 F 76 17 146/67 97 10/21/17 07:08 10/21/17 07:08 10/21/17 07:08 10/21/17 07:08 10/21/17 07:08 General appearance: Present: A&O X 1 (To self), pleasant, no acute distress, answers questions appropriately - Head Head exam: Present: atraumatic, normocephalic - Eye Eye exam: Present: PERRL, conjuntiva pink, sclera anicteric - Neck Neck exam general surgery: Present: supple, trachea midline. Absent: lymphadenopathy - Respiratory Respiratory exam: Present: CTAB, wheezes (Inspiratory). Absent: accessory muscle use, rales, rhonchi - Cardiovascular Cardiovascular exam: Present: RRR, +S1, +S2. Absent: diastolic murmur, gallop, rubs, systolic murmur - GI/Abdominal GI/Abdominal exam: Present: normal bowel sounds, soft, no peritoneal signs. Absent: distended, tenderness - Extremities Exam Extremities exam: Present: warm, radial pulses palpable and symmetrical. Absent : calf tenderness, cyanotic, pedal edema - Neurological Exam Neurological exam: Present: alert, no focal deficits. Absent: pronater drift, facial droop, speech deficit - Skin Skin exam: Present: dry, intact <Raghu Szymanski T - Last Filed: 10/21/17 15:16> Date of Encounter: 10/21/17 - Discharge Diagnosis (1) Pneumonia Status: Acute Qualifiers: Pneumonia type: due to unspecified organism Laterality: right Lung location: lower lobe of lung Qualified Code(s): J18.1 - Lobar pneumonia, unspecified organism (2) Dementia Status: Chronic Qualifiers: Dementia type: unspecified type Dementia behavioral disturbance: without behavioral disturbance Qualified Code(s): F03.90 - Unspecified dementia without behavioral disturbance (3) Hyperlipidemia Status: Chronic Qualifiers: Hyperlipidemia type: pure hypercholesterolemia Qualified Code(s): E78.00 - Pure hypercholesterolemia, unspecified; E78.0 - Pure hypercholesterolemia (4) COPD (chronic obstructive pulmonary disease) Status: Chronic Qualifiers: COPD type: unspecified COPD Qualified Code(s): J44.9 - Chronic obstructive pulmonary disease, unspecified (5) Hypertension Status: Chronic Qualifiers: Hypertension type: essential hypertension Qualified Code(s): I10 - Essential (primary) hypertension (6) DVT prophylaxis Status: Acute Date of admission: 10/16/17 20:24 Primary care physician: Frank Hodge Jr, MD Consults: 10/16/17 20:49 Consult to Speech Therapy [CONS] Routine Comment: Evaluate, develop and implement POC Reason for Consult: Swallow eval in setting of dementia pt. Call Completed: No 10/17/17 16:04 Consult to Physical Therapy [CONS] Routine Comment: Evaluate, develop and implement POC Reason for Consult: placement need, weakness OT [Consult to Occupational Therapy] [CONS] Routine Comment: Evaluate, develop and implement POC Reason for Consult: placement need, weakness Hospital course: Ms. Obrien is a 87 year old female - Time Spent with Patient Total time spent providing and/or coordinating discharge services: - Constitutional Vitals: Temp Pulse Resp BP Pulse Ox 98.2 F 77 18 124/64 93 10/21/17 14:37 10/21/17 14:37 10/21/17 14:37 10/21/17 14:37 10/21/17 14:37 - Attending Attestation I have independently seen and examined this patient 10/21/17 Pleasantly confused, awake, alert, no new complains She is admitted and being managed for pneumonia, on room air at this time Per SW, patient's daughter wants the patient to be trasnferred to [facility] SNF , patient currently lives in assisted living PTOT has recommended that patient return to prior living arrangement She has no new complains this morning Exam unremarkable, Oriented to person only Persistent leukocytosis in labs. Chem unremarkable Medically stable for discharge, to complete 7 days of antibiotic therapy Rest as in resident physician's documentation
--- NOTE | 2017-10-21 08:56 | Physician Discharge Referral ---
ExtendedCare Referral Info Provider in Charge: julieta Provider in Charge after Transfer: PCP - Diagnosis (1) Pneumonia Priority: Primary Status: Acute (2) COPD (chronic obstructive pulmonary disease) Priority: Secondary Status: Chronic (3) Dementia Priority: Secondary Status: Chronic (4) DVT prophylaxis Priority: Secondary Status: Acute (5) Hyperlipidemia Priority: Secondary Status: Chronic (6) Hypertension Priority: Secondary Status: Chronic Prognosis: Fair Aware of Diagnosis: Family Aware of Prognosis: Family - Transfer Medications Home Medications: Clopidogrel [Plavix] 75 mg PO DAILY 12/10/15 [History] Cyanocobalamin (Vitamin B-12) [B-12 Compliance] 1,000 mcg IM QMONTH 12/10/15 [ History] Felodipine [Felodipine ER] 2.5 mg PO DAILY 12/10/15 [History] Furosemide [Lasix] 20 mg PO DAILY 12/10/15 [History] Losartan [Cozaar] 50 mg PO BID 12/10/15 [History] Simvastatin [Zocor] 20 mg PO HS 12/10/15 [History] Terazosin [Hytrin] 5 mg PO DAILY 12/10/15 [History] Albuterol Neb [Proventil Neb] 2.5 mg IH Q6H PRN 07/07/16 [History] DiphenhydraMINE [Benadryl] 25 mg PO HS PRN 10/16/17 [History] Donepezil HCl [Aricept] 10 mg PO HS 10/16/17 [History] Memantine HCl [Namenda Xr] 21 mg PO DAILY 10/16/17 [History] Propranolol LA (24 HR) [Inderal LA] 60 mg PO DAILY 10/16/17 [History] Allergies/Adverse Reactions: 3 Allergy/AdvReac Type Severity Reaction Status Date / Time No Known Allergies Allergy Verified 07/07/16 14:27 - Respiratory Orders None Smoking Cessation: Smoking cessation has been advised. For more information, call the [place] Tobacco Quit Line at 0-832-VAYD-NOW. - Ancillary Orders May use pressure relief devices daily prn - Advance Directives Code Status: Full Code - Mobility Orders Ambulate (with assistance) - Rehabiliation Orders Rehab Potential: Fair Rehab Orders: Sternal Precautions, ROM Exercises - Treatments Skin tear care topically daily PRN per policy - Diet Orders Regular (with magic cup supplementation) CERTIFICATION: I certify that the transfer of the above named patient to an Extended Care Facility is necessary for the continuing treatment of the diagnosis listed. The above information is true and accurate reflection of patient's current condition. Confidential - Redisclosure prohibited without a patient's written consent.
[2017-10-21 10:27] LABS: Bilirubin,Urine Negative (Negative); Blood,Urine Negative (Negative); Clarity,Urine Clear (Clear); Color,Urine Yellow (Yellow); Glucose,Urine (UA) Normal (Normal); Ketones,Urine Negative (Negative); Leukocyte Esterase,Urine Negative (Negative); Nitrite,Urine Negative (Negative); Protein,Urine Trace mg/dL (Neg-Trace); Specific Gravity,Urine 1.023 (1.010-1.025); Urobilinogen,Urine Normal (Normal)
[2017-10-21 10:29] LABS: Bacteria,Urine None Seen per hpf (None-Few); Hyaline Casts,Urine None Seen per lpf (None-Few); Squamous Epithelial Cell,Urine Many per lpf (None-Few); WBC,Urine 0-3 per hpf (0-3)
[2017-10-21 14:40] VITALS: BP 124/64
[2017-10-21] MEDS ORDERED: Levofloxacin 750 MG/150 ML 750 MG/150 ML BAG IVPB SCH (15:00)
== END 2017-10-21 15:45 | DRG 194 ==
LOC: EMEROO 14:13 → 2ANU 14:13 → SUATTDRO 20:24 → 2ANU 20:43
PROVIDERS: ADMIT Family Medicine; ATTEND Internal Medicine

== ENCOUNTER 2017-11-11 11:10 | Inpatient (IN) ==
[2017-11-11] MEDS ORDERED: 0.9 % Sodium Chloride 1,000 ML IVC ONE (11:18)
[2017-11-11] MEDS ORDERED: methylPREDNISolone 125 MG/2 ML VIAL IVP ONE (11:21)
[2017-11-11] MEDS ORDERED: Ipratropium/Albuterol Neb 3 ML IH ONE (11:21)
--- NOTE | 2017-11-11 11:31 | Emergency Department Note ---
Disposition Clinical Impression: Acute exacerbation of chronic obstructive airways disease Right lower lobe pneumonia Qualifiers: Pneumonia type: due to unspecified organism Qualified Code(s): J18.1 - Lobar pneumonia, unspecified organism Disposition: Admitted As Inpatient Condition: Fair Referrals: NONE,PCP [Non-Partnered Physician] - Forms: ED Satisfaction Letter Time of Disposition: 12:47 SOB HPI - General Chief Complaint: ED Shortness of Breath/Dyspnea Stated Complaint: CECILIA/cough Time Seen by Provider: 11/11/17 11:18 Source: family, EMS Mode of arrival: EMS Limitations: no limitations Nursing Notes Reviewed: Yes Vital Signs Reviewed: Yes - History of Present Illness 87-year-old with a history COPD was being seen at the pulmonology office who was found to be increasingly short of breath and exacerbation of her COPD sent from the pulmonology office with recommendations for admission and IV antibiotics. [facility] a [facility]. Pt Subjective Complaint: shortness of breath Onset (ago): day(s) Context: recent illness Severity: moderate Consistency/Duration: constant Improves with: nothing Worsens with: exertion Known history of: COPD Associated symptoms: Reports: cough Treatment prior to arrival: none - Related Data Home Medications Medication Instructions Recorded Confirmed Clopidogrel [Plavix] 75 mg PO DAILY 12/10/15 10/16/17 Cyanocobalamin (Vitamin B-12) 1,000 mcg IM QMONTH 12/10/15 10/16/17 [B-12 Compliance] Felodipine [Felodipine ER] 2.5 mg PO DAILY 12/10/15 10/16/17 Furosemide [Lasix] 20 mg PO DAILY 12/10/15 10/16/17 Losartan [Cozaar] 50 mg PO BID 12/10/15 10/16/17 Simvastatin [Zocor] 20 mg PO HS 12/10/15 10/16/17 Terazosin [Hytrin] 5 mg PO DAILY 12/10/15 10/16/17 Albuterol Neb [Proventil Neb] 2.5 mg IH Q6H PRN 07/07/16 10/16/17 DiphenhydraMINE [Benadryl] 25 mg PO HS PRN 10/16/17 10/16/17 Donepezil HCl [Aricept] 10 mg PO HS 10/16/17 10/16/17 Memantine HCl [Namenda Xr] 21 mg PO DAILY 10/16/17 10/16/17 Propranolol LA (24 HR) [Inderal LA] 60 mg PO DAILY 10/16/17 10/16/17 Allergies Allergy/AdvReac Type Severity Reaction Status Date / Time No Known Allergies Allergy Verified 11/11/17 11:19 All systems ED: reviewed and negative except as stated. Constitutional: Denies: fever, chills, weakness, weight change Eyes: Denies: eye pain, eye discharge, vision change ENT ED: Denies: ear pain, throat pain, dental pain, hearing loss, epistaxis, congestion, dysphagia Cardiovascular: Denies: chest pain, palpitations, dyspnea on exertion, edema, syncope Respiratory: Reports: cough, dyspnea, wheezes. Denies: hemoptysis, stridor Gastrointestinal: Denies: abdominal pain, nausea, vomiting, diarrhea, constipation, hematemesis, melena, hematochezia Genitourinary: Denies: dysuria, frequency, hematuria, discharge Musculoskeletal: Denies: back pain, neck pain, arthralgia, myalgia Integumentary: Denies: rash, abrasion, lesions Neurological: Denies: headache, weakness, numbness, paresthesias, confusion, abnormal gait, vertigo Psychiatric: Denies: anxiety, depression, suicidal thoughts, homicidal thoughts , auditory hallucinations, visual hallucinations Endocrine: Denies: fatigue Hematological/Lymphatic: Denies: easy bleeding, easy bruising Allergic/Immunologic: Denies: facial swelling, urticaria Past Medical History - Past Medical History Medical history: Reports: COPD, dementia, hyperlipidemia, hypertension, myocardial infarction, TIA, other Surgical history: Reports: other Psychiatric history: Reports: no psych history - Social History Smoking Status: Never smoker Smokeless Tobacco Status: No Alcohol use: Reports: none Drug use: Reports: none Physical Exam - General Limitations: no limitations General appearance: alert, in no apparent distress - Head Head exam: atraumatic, normocephalic, normal inspection - Eye Eye exam: Present: normal appearance, PERRL, EOMI - ENT ENT exam: normal exam, normal oropharynx, mucous membranes moist - Neck Neck exam: Present: normal inspection, full ROM, trachea midline - Chest Chest inspection: Present: normal inspection, symmetric chest wall rise - Respiratory Respiratory exam: Present: respiratory distress, wheezes, prolonged expiratory phase - Cardiovascular Cardiovascular exam: Present: regular rate, normal rhythm, normal heart sounds - Abdominal Exam Abdominal exam: Present: soft, Non-Tender. Absent: tenderness, distention, guarding, rebound, rigidity - Extremities Exam Extremities exam: Present: normal inspection, full ROM. Absent: tenderness, pedal edema - Expanded Lower Extremity Exam Neurovascular/Tendon exam: Absent: motor deficit, sensory deficit, tendon deficit Gait: not tested/not observed - Back Exam Back exam: Present: normal inspection, full ROM. 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 Chest x-ray did show a right middle and lower lobe pneumonia. The patient is a DNR Comfort Care only. I did verify that with the daughter. Time: 12:45 - Consultations Consultation #1: Cussed with , admit. Time: 12:48 Vital Signs Temperature 99.2 F 11/11/17 11:12 Pulse Rate 87 11/11/17 11:12 Respiratory Rate 16 11/11/17 11:12 Blood Pressure 109/65 11/11/17 11:12 O2 Sat by Pulse Oximetry 94 11/11/17 11:12 Temperature 99.2 F 11/11/17 11:12 Pulse Rate 86 11/11/17 12:32 Respiratory Rate 24 11/11/17 12:32 Blood Pressure 120/60 11/11/17 12:32 O2 Sat by Pulse Oximetry 93 11/11/17 12:32 Oxygen Delivery Oxygen Delivery Nasal Cannula Shortness of Breath/Dyspnea - Lab Data Lab results reviewed: Yes I reviewed the patient's lab results. Result diagrams: 11/11/17 11:40 11/11/17 11:40 Lab Results 11/11/17 11/11/17 11/11/17 Range/Units 11:40 11:40 11:40 WBC 10.4 (4.3-11.1) K/mcL RBC 3.40 L (3.82-4.97) M/mcL Hgb 10.5 L (11.5-15.4) g/dL Hct 34.0 L (35.3-44.9) % MCV 100.0 (83.0-100.0) fL MCH 30.9 (28.0-33.3) pg MCHC 30.9 L (31.6-35.5) g/dL RDW 14.3 (11.5-14.5) % Plt Count 165 (140-400) K/mcL MPV 11.5 (9.4-12.4) fL Immature Gran % 0.5 (0-4) % Seg Neutrophils % 80.4 % Lymphocytes % 5.9 % Monocytes % 11.1 % Eosinophils % 1.9 % Basophils % 0.2 % Neutrophils # 8.4 (1.6-8.9) K/mcL Lymphocytes # 0.6 (0.6-4.6) K/mcL Monocytes # 1.2 (0.0-1.3) K/mcL Eosinophils # 0.2 (0.0-0.6) K/mcL Basophils # 0.0 (0.0-0.2) K/mcL Sodium 138 (136-145) mEq/L Potassium 4.3 (3.5-5.1) mEq/L Chloride 101 (98-107) mEq/L Carbon Dioxide 30 H (23-29) mEq/L BUN 16 (8-23) mg/dL Creatinine 0.72 (0.60-1.20) mg/dL Est GFR ( Amer) > 60 (> 60) Est GFR (Non-Af Amer) > 60 (> 60) BUN/Creatinine Ratio 22 (6-26) Glucose 151 H (70-105) mg/dL Calculated Osmolality 290 (280-300) Lactic Acid 1.2 (0.5-2.2) mmol/L Calcium 9.0 (8.6-10.3) mg/dL Troponin I (< 0.04) ng/mL B-Natriuretic Peptide (Less than 100) pg/mL 11/11/17 11/11/17 Range/Units 11:40 11:40 WBC (4.3-11.1) K/mcL RBC (3.82-4.97) M/mcL Hgb (11.5-15.4) g/dL Hct (35.3-44.9) % MCV (83.0-100.0) fL MCH (28.0-33.3) pg MCHC (31.6-35.5) g/dL RDW (11.5-14.5) % Plt Count (140-400) K/mcL MPV (9.4-12.4) fL Immature Gran % (0-4) % Seg Neutrophils % % Lymphocytes % % Monocytes % % Eosinophils % % Basophils % % Neutrophils # (1.6-8.9) K/mcL Lymphocytes # (0.6-4.6) K/mcL Monocytes # (0.0-1.3) K/mcL Eosinophils # (0.0-0.6) K/mcL Basophils # (0.0-0.2) K/mcL Sodium (136-145) mEq/L Potassium (3.5-5.1) mEq/L Chloride (98-107) mEq/L Carbon Dioxide (23-29) mEq/L BUN (8-23) mg/dL Creatinine (0.60-1.20) mg/dL Est GFR ( Amer) (> 60) Est GFR (Non-Af Amer) (> 60) BUN/Creatinine Ratio (6-26) Glucose (70-105) mg/dL Calculated Osmolality (280-300) Lactic Acid (0.5-2.2) mmol/L Calcium (8.6-10.3) mg/dL Troponin I 0.03 (< 0.04) ng/mL B-Natriuretic Peptide 52 (Less than 100) pg/mL - Radiology Data Radiology results reviewed: Yes I reviewed the patient's radiology results. Chest X-Ray 11/11/17 11:18 IMPRESSION: Right middle/ lower lobe pneumonia, overall improved since 10/16/2017. Recommend continued follow-up until resolution, preferably follow-up radiograph in 4-6 weeks unless indicated earlier, clinically. D/ / Jamari Little / Jamari Little Interpreting Provider: Jamari Little - EKG Data EKG attestation: Yes I reviewed and interpreted this EKG. EKG shows normal: Reports: sinus rhythm Rate: Reports: normal Rhythm: Reports: NSR [place]/QRS: Reports: left axis deviation When compared to previous EKG there are: no significant changes (10/16/2017) Interpretation: Reports: no acute changes
[2017-11-11 11:55] LABS: Basophils % 0.2 %; Eosinophils # 0.2 K/mcL (0.0-0.6); Eosinophils % 1.9 %; Hemoglobin 10.5 g/dL (11.5-15.4); Immature Granulocytes % 0.5 % (0-4); Lymphocytes # 0.6 K/mcL (0.6-4.6); Lymphocytes % 5.9 %; Mean Corpuscular HGB Conc 30.9 g/dL (31.6-35.5); Mean Corpuscular Hemoglobin 30.9 pg (28.0-33.3); Mean Platelet Volume 11.5 fL (9.4-12.4); Monocytes # 1.2 K/mcL (0.0-1.3); Monocytes % 11.1 %; Neutrophils # 8.4 K/mcL (1.6-8.9); Platelet Count 165 K/mcL (140-400); Red Cell Distribution Width 14.3 % (11.5-14.5); Segmented Neutrophils % 80.4 %
[2017-11-11 12:08] LABS: BUN/Creatinine Ratio 22 (6-26); Blood Urea Nitrogen 16 mg/dL (8-23); Carbon Dioxide 30 mEq/L (23-29); Chloride 101 mEq/L (98-107); Glucose 151 mg/dL (70-105); Osmolality,Calculated 290 (280-300); Potassium 4.3 mEq/L (3.5-5.1); Sodium 138 mEq/L (136-145); eGFR For African Americans > 60 (> 60); eGFR For Non-African Americans > 60 (> 60)
[2017-11-11] MEDS ORDERED: Piperacillin/Tazobactam 3.375 GM in D5% in Water (Mini-Bag+) 100 ML IVPB ONE (12:40)
[2017-11-11] MEDS ORDERED: Piperacillin/Tazobactam 3.375 GM in Water for inj. (sterile) 20 ML 20 ML IVP ONE (13:06)
[2017-11-11] MEDS ORDERED: Naloxone 0.4 MG/ML INJ IVP PRN (13:26)
[2017-11-11] MEDS ORDERED: Acetaminophen 325 MG TABLET PO PRN (13:26)
[2017-11-11] MEDS ORDERED: Albuterol 2.5 MG/3 ML NEBULIZER IH PRN (13:30)
--- NOTE | 2017-11-11 13:45 | Internal Med History&Physical ---
<Juanis Knox - Last Filed: 11/11/17 14:26> Date of Encounter: 11/11/17 Time of Encounter: 13:34 Assessment and Plan (1) Acute exacerbation of chronic obstructive airways disease Current visit: Yes Status: Acute 1 patient has been extensively increasing shortness of breath cough sputum production and wheezing. Chest x-ray showed improving pneumonia SPO2 lower 90s improves to 95% on 2 L. We will continue with oxygen titrated maintaining oxygen greater than 92% Continue steroids Bronchodilators Levaquin Sputum for culture Physical therapy/occupational therapy to increase endurance (2) Bronchitis Current visit: Yes Status: Acute 1 she has been experiencing a cough with yellow sputum production chest x-ray does not show improving pneumonia as well as no leukocytosis. We will initiate on Levaquin We will give Mucinex BronchoDilators Levaquin (3) Acute on chronic respiratory failure with hypoxemia Current visit: Yes Status: Acute Patient presented with an SPO2 and lower 90s only improved to 95% on 2 L does have history of COPD not on a home oxygen suspect this is exacerbation. We will continue with oxygen titrated to maintain SPO2 greater than 92% (4) Dementia Current visit: No Status: Chronic Continue with home medication Aricept Fall precautions Qualifiers: Dementia type: unspecified type Dementia behavioral disturbance: without behavioral disturbance Qualified Code(s): F03.90 - Unspecified dementia without behavioral disturbance (5) DVT prophylaxis Current visit: No Status: Acute [facility] Internal Medicine - H&P: HPI Chief complaint: SOB Admitted From: Emergency Dept Plans for Post Hospital Care: Home History of present illness: Ms. Obrien is a 87 year old female past medical history of dementia COPD non- oxygen dependent TIA hypertension. Information obtained from daughter as well as medical records due to patient's impaired cognitive state. Patient was recently admitted to this facility for pneumonia and discharged on 10/21/17. She completed in the back treatment of Levaquin and was [facility] to [facility]. Patient was doing well up until a couple of days ago when the daughter states that she has patient was becoming increasingly short of breath and was not able to ambulate to physical therapy. She also has had a moist productive cough she has been unable to sleep at night due to cough. She was given cough medicine without relief. She also has had wheezing and has been using nebulizer treatments with little relief. 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 She was transported to the ER for further evaluation. According to ER records lab work was unremarkable there was no leukocytosis chest x-ray right middle lower lobe pneumonia which was improving. EKG normal sinus rhythm. She has been admitted for further evaluation. Presently patient does not appear to be respiratory distress she does have a moist productive cough with yellow sputum she is hemodynamically stable this time. I did review this case with who agrees with plan Past Med Surg Social Fam HX - Past Medical History Medical history: COPD, dementia, hyperlipidemia, hypertension, myocardial infarction, TIA, other Psychiatric history: no psych history - Past Surgical History Surgical History: other - Social History Smoking Status: Never smoker Smokeless Tobacco Status: No Alcohol use: none Drug use: none - Family History Father Living Status: Hx Family Cardiac Disorders: Yes (Hypertension) Hx Family Endocrine Disorder: Yes (Diabetes) Hx Family Neurologic Disorders: Yes (Stroke) Internal Medicine - H&P: Meds Clopidogrel [Plavix] 75 mg PO DAILY 12/10/15 [History] Cyanocobalamin (Vitamin B-12) [B-12 Compliance] 1,000 mcg IM QMONTH 12/10/15 [ History] Felodipine [Felodipine ER] 2.5 mg PO DAILY 12/10/15 [History] Furosemide [Lasix] 20 mg PO DAILY 12/10/15 [History] Losartan [Cozaar] 50 mg PO BID 12/10/15 [History] Simvastatin [Zocor] 20 mg PO HS 12/10/15 [History] Terazosin [Hytrin] 5 mg PO DAILY 12/10/15 [History] Albuterol Neb [Proventil Neb] 2.5 mg IH Q6H PRN 07/07/16 [History] DiphenhydraMINE [Benadryl] 25 mg PO HS PRN 10/16/17 [History] Donepezil HCl [Aricept] 10 mg PO HS 10/16/17 [History] Memantine HCl [Namenda Xr] 21 mg PO DAILY 10/16/17 [History] Propranolol LA (24 HR) [Inderal LA] 60 mg PO DAILY 10/16/17 [History] 3 Allergy/AdvReac Type Severity Reaction Status Date / Time No Known Allergies Allergy Verified 11/11/17 11:19 ROS unobtainable: due to mental status All Systems PM: A 10-system review of systems was performed and is negative for pertinent findings except as documented above in the HPI. - Constitutional Vitals: Temp Pulse Resp BP Pulse Ox 99.2 F 84 24 119/58 93 11/11/17 11:12 11/11/17 13:32 11/11/17 13:32 11/11/17 13:32 11/11/17 13:32 General appearance: Present: cooperative, A&O X 1, pleasant - Head Head exam: Present: atraumatic, normocephalic - Eye Eye exam: Present: PERRL, conjuntiva pink, sclera anicteric Pupils: Present: PERRL - Neck Neck exam general surgery: Present: supple, trachea midline. Absent: lymphadenopathy - Respiratory Respiratory exam: Present: wheezes. Absent: accessory muscle use, rales, rhonchi - Cardiovascular Cardiovascular exam: Present: RRR, +S1, +S2. Absent: diastolic murmur, gallop, rubs, systolic murmur - GI/Abdominal GI/Abdominal exam: Present: normal bowel sounds, soft, no peritoneal signs. Absent: distended, tenderness - Extremities Exam Extremities exam: Present: warm, radial pulses palpable and symmetrical. Absent : calf tenderness, cyanotic, pedal edema - Neurological Exam Neurological exam: Present: CN II-XII intact, no focal deficits. Absent: pronater drift, facial droop, speech deficit - Skin Skin exam: Present: dry, intact Internal Med - H&P Results - Labs CBC & Chem 7: 11/11/17 11:40 11/11/17 11:40 Labs: Short CBC 11/11/17 Range/Units 11:40 WBC 10.4 (4.3-11.1) K/mcL Hgb 10.5 L (11.5-15.4) g/dL Hct 34.0 L (35.3-44.9) % Plt Count 165 (140-400) K/mcL Neutrophils # 8.4 (1.6-8.9) K/mcL BMP 11/11/17 11:40 Sodium 138 Potassium 4.3 Chloride 101 Carbon Dioxide 30 H BUN 16 Creatinine 0.72 Glucose 151 H Calcium 9.0 Cardiac Enzymes 11/11/17 Range/Units 11:40 Troponin I 0.03 (< 0.04) ng/mL - EKG Data EKG shows normal: sinus rhythm - EKG Data Prior EKG available for review: yes When compared to previous EKG: there is no significant change - Impressions ITS Impressions Chest X-Ray 11/11/17 11:18 IMPRESSION: Right middle/ lower lobe pneumonia, overall improved since 10/16/2017. Recommend continued follow-up until resolution, preferably follow-up radiograph in 4-6 weeks unless indicated earlier, clinically. D/ / Jamari Little / Jamari Little Interpreting Provider: Jamari Little <Raghu Szymanski T - Last Filed: 11/11/17 16:48> Date of Encounter: 11/11/17 Internal Medicine - H&P: HPI History of present illness: Ms. Obrien is a 87 year old female All Systems PM: A 10-system review of systems was performed and is negative for pertinent findings except as documented above in the HPI. - Constitutional Vitals: Temp Pulse Resp BP Pulse Ox 99.2 F 93 24 118/56 91 11/11/17 11:12 11/11/17 15:32 11/11/17 16:14 11/11/17 16:05 11/11/17 16:14 Internal Med - H&P Results - Labs CBC & Chem 7: 11/11/17 11:40 11/11/17 11:40 - Attending Attestation Seen and examined independently in the ER Actively wheezing, pleasantly confused, not in distress Labs and Imaging reviewed Agree with nebs, antibiotics, steroids. No pneumonia on CXR. Management is as in LEEANNE Knox' documentation which is in line with our plan of management
[2017-11-11] MEDS: Levofloxacin 750 MG/150 ML 750 MG/150 ML BAG IVPB SCH (15:28)
[2017-11-11] MEDS: Ipratropium/Albuterol Neb 3 ML IH SCH ×4 (16:08→23:11)
[2017-11-11] MEDS: MethylPREDNISolone 40 MG/ML VIAL IVP SCH (21:32)
[2017-11-12] MEDS: Ipratropium/Albuterol Neb 3 ML IH SCH ×5 (03:52→20:12)
[2017-11-12] MEDS: MethylPREDNISolone 40 MG/ML VIAL IVP SCH ×4 (04:40→22:41)
[2017-11-12 05:07] LABS: Basophils % 0.1 %; Hematocrit 31.8 % (35.3-44.9); Hemoglobin 10.1 g/dL (11.5-15.4); Lymphocytes # 0.4 K/mcL (0.6-4.6); Lymphocytes % 5.2 %; Mean Corpuscular HGB Conc 31.8 g/dL (31.6-35.5); Mean Corpuscular Hemoglobin 31.1 pg (28.0-33.3); Mean Corpuscular Volume 97.8 fL (83.0-100.0); Mean Platelet Volume 11.6 fL (9.4-12.4); Monocytes # 0.2 K/mcL (0.0-1.3); Monocytes % 3.1 %; Neutrophils # 6.2 K/mcL (1.6-8.9); Platelet Count 153 K/mcL (140-400); Red Blood Count 3.25 M/mcL (3.82-4.97); Segmented Neutrophils % 90.6 %
[2017-11-12 05:33] LABS: BUN/Creatinine Ratio 26 (6-26); Blood Urea Nitrogen 18 mg/dL (8-23); Calcium 8.7 mg/dL (8.6-10.3); Carbon Dioxide 30 mEq/L (23-29); Chloride 104 mEq/L (98-107); Glucose 203 mg/dL (70-105); Magnesium 2.1 mg/dL (1.6-2.6); Osmolality,Calculated 298 (280-300); Potassium 4.1 mEq/L (3.5-5.1); Sodium 140 mEq/L (136-145); eGFR For African Americans > 60 (> 60); eGFR For Non-African Americans > 60 (> 60)
--- NOTE | 2017-11-12 08:24 | Electrocardiograph Report ---
[address] [address] Test Date: 2017-11-11 Pat Name: Yamini Obrien Department: 104 Room: 2NE26 Gender: F [employer]: LEVY : 1930 Requested By: Niles Andersen Order Number: [id number] Reading MD: Stephan Jimenes MD Measurements Intervals Powers Rate: 86 P: -1 WI: 137 QRS: -36 QRSD: 82 T: 24 QT: 359 QTc: 402 Interpretive Statements SINUS RHYTHM MARKED LEFT AXIS DEVIATION MODERATE VOLTAGE CRITERIA FOR LVH Electronically Signed On 11-12-2017 8:22:06 EST by Stephan Jimenes MD
[2017-11-12] MEDS: *HR* Enoxaparin 40 MG/0.4 ML SYRINGE SQ SCH (09:01)
[2017-11-12] MEDS: Levofloxacin 750 MG/150 ML 750 MG/150 ML BAG IVPB SCH (09:02)
--- NOTE | 2017-11-12 10:58 | Internal Med Progress Note ---
<Edu Nuñez - Last Filed: 11/12/17 10:54> Date of Encounter: 11/12/17 Time of Encounter: 10:55 - Assessment and plan (1) Acute exacerbation of chronic obstructive airways disease Current Visit: Yes Status: Acute Assessment and plan: Chest x-ray showed improving pneumonia. Patient today is clinically improved. continues to use respiratory muscles. hemodynamically stable. O2 weaned to 1.5L. - SpO2 goal 88-92% - abx levaquin Day 1 - sputum Cx pending - PT/OT to increase activity - started symbicort - continue respiratory support (2) Acute on chronic respiratory failure with hypoxemia Current Visit: Yes Status: Acute Assessment and plan: see above (3) Bronchitis Current Visit: Yes Status: Acute Assessment and plan: see above (4) Dementia Current Visit: Yes Status: Chronic Assessment and plan: continue home donepezil and memantine Qualifiers: Dementia type: unspecified type Dementia behavioral disturbance: without behavioral disturbance Qualified Code(s): F03.90 - Unspecified dementia without behavioral disturbance (5) DVT prophylaxis Current Visit: Yes Status: Acute Assessment and plan: lovenox - Subjective Interval history: Ms Obrien is an 87 yo F with dementia, COPD, non-oxygen dependent, TIA, and hypertension presented with SOB. She was recently discharged on 10/21/17 for PNA and completed treatement with Levaquin at [facility]. Patient is a poor historian, and hx was mainly gathered from records and daughter. Patient today has no new complaints, no events overnight. Patient denies difficulty breathing, fever, chills, weight loss, chest pain, diaphoresis, PND, orthopnea. - Constitutional Vitals: Temp Pulse Resp BP Pulse Ox 97.7 F 90 18 174/91 92 11/12/17 06:50 11/12/17 06:50 11/12/17 07:28 11/12/17 06:50 11/12/17 07:28 General appearance: Present: cooperative, A&O X 1, pleasant - Head Head exam: Present: atraumatic, normocephalic - Respiratory Respiratory exam: Present: accessory muscle use, prolonged expiratory phase, rales, wheezes - Cardiovascular Cardiovascular exam: Present: RRR, +S1, +S2. Absent: diastolic murmur, gallop, rubs, systolic murmur - Extremities Exam Extremities exam: Present: warm, radial pulses palpable and symmetrical. Absent : calf tenderness, cyanotic, pedal edema - Psychiatric Psychiatric exam: Present: normal affect, normal mood Internal Medicine: Result - Labs CBC & Chem 7: 11/12/17 04:28 11/12/17 04:28 Labs: Short CBC 11/12/17 Range/Units 04:28 WBC 6.9 (4.3-11.1) K/mcL Hgb 10.1 L (11.5-15.4) g/dL Hct 31.8 L (35.3-44.9) % Plt Count 153 (140-400) K/mcL Neutrophils # 6.2 (1.6-8.9) K/mcL BMP 11/12/17 04:28 Sodium 140 Potassium 4.1 Chloride 104 Carbon Dioxide 30 H BUN 18 Creatinine 0.70 Glucose 203 H Calcium 8.7 Consult Discharge Plan - Plan Referrals: Viola Chan [Primary Care Provider] - <Harvey Ayers - Last Filed: 11/12/17 18:16> Date of Encounter: 11/12/17 - Assessment and plan (1) Acute on chronic respiratory failure with hypoxemia Current Visit: Yes Status: Acute (2) Acute exacerbation of chronic obstructive airways disease Current Visit: Yes Status: Acute (3) Right lower lobe pneumonia Current Visit: Yes Status: Acute Qualifiers: Pneumonia type: due to unspecified organism Qualified Code(s): J18.1 - Lobar pneumonia, unspecified organism (4) Hypertension Current Visit: No Status: Chronic Qualifiers: Hypertension type: essential hypertension Qualified Code(s): I10 - Essential (primary) hypertension (5) Hyperlipidemia Current Visit: No Status: Chronic Qualifiers: Hyperlipidemia type: mixed hyperlipidemia Qualified Code(s): E78.2 - Mixed hyperlipidemia (6) Dementia Current Visit: Yes Status: Chronic Qualifiers: Dementia type: vascular dementia Dementia behavioral disturbance: without behavioral disturbance Qualified Code(s): F01.50 - Vascular dementia without behavioral disturbance - Constitutional Vitals: Temp Pulse Resp BP Pulse Ox 98.0 F 104 18 149/85 95 11/12/17 14:48 11/12/17 14:48 11/12/17 15:58 11/12/17 14:48 11/12/17 15:58 Internal Medicine: Result - Labs CBC & Chem 7: 11/12/17 04:28 11/12/17 04:28 Labs: Short CBC 11/12/17 Range/Units 04:28 WBC 6.9 (4.3-11.1) K/mcL Hgb 10.1 L (11.5-15.4) g/dL Hct 31.8 L (35.3-44.9) % Plt Count 153 (140-400) K/mcL Neutrophils # 6.2 (1.6-8.9) K/mcL BMP 11/12/17 04:28 Sodium 140 Potassium 4.1 Chloride 104 Carbon Dioxide 30 H BUN 18 Creatinine 0.70 Glucose 203 H Calcium 8.7 - Attending Attestation I examined this patient and my medical decision-making was reviewed with the Resident Physician on 11/12/17. I agree with the documented findings, disposition and treatment plan as described except to the extent set forth below. Ms Obrien is currently admitted for acute exac COPD and hypoxia. She remains moderate to high risk due to potential for worsening respiratory status. Ms Obrien says she feels better. Daughter at bedside says she has improved some. Pt wants to go home. No CP. Breathing still tight but better. No fever. Exam alert. Comfortable Mucus membranes dry Heart distant Lungs with diffuse wheeze Abd soft I/P 1. Hypoxia 2. COPD Further diagnoses and plan as above.
[2017-11-12] MEDS: Budesonide/Formoterol 80/4.5 MDI IH SCH (20:12)
[2017-11-13] MEDS: Ipratropium/Albuterol Neb 3 ML IH SCH ×7 (00:27→23:11)
[2017-11-13] MEDS: MethylPREDNISolone 40 MG/ML VIAL IVP SCH ×4 (04:10→16:54)
[2017-11-13] MEDS: *HR* Enoxaparin 40 MG/0.4 ML SYRINGE SQ SCH (06:02)
[2017-11-13] MEDS: Budesonide/Formoterol 80/4.5 MDI IH SCH ×2 (07:48→19:46)
[2017-11-13] MEDS: NAMENDA 21 MG PO SCH (09:35)
[2017-11-13] MEDS: Propranolol LA (24 HR) 60 MG CAP.SA.24H PO SCH (15:29)
--- NOTE | 2017-11-13 16:18 | Internal Med Progress Note ---
<Edu Nuñez - Last Filed: 11/13/17 16:16> Date of Encounter: 11/13/17 Time of Encounter: 09:00 - Assessment and plan (1) Hypertension Current Visit: Yes Status: Chronic Assessment and plan: Patient's BP has remained unstable during hospitalization. On initial presentation patient was allowed permissive HTN. Patient had a flushing reaction to hydralazine during the night. - Hold hydralazine - increased losartan to 100 mg PO daily, increased terazon to 10 mg. continue home propranolol 60 mg - started Norvasc 5 mg PO q4hr PRN for SBP >160 - continue to closely monitor - if BP remains stable tomorrow, will discharge tomorrow. Qualifiers: Hypertension type: essential hypertension Qualified Code(s): I10 - Essential (primary) hypertension (2) Acute exacerbation of chronic obstructive airways disease Current Visit: Yes Status: Acute Assessment and plan: Chest x-ray showed improving pneumonia. Patient today is clinically stable and back to baseline. hemodynamically stable. O2 weaned to 1.5L. - SpO2 goal 88-92% - abx levaquin Day 2 - sputum Cx pending - PT/OT to increase activity - continue respiratory support - patient to have prescription to symbicort on D/C (3) Acute on chronic respiratory failure with hypoxemia Current Visit: Yes Status: Acute Assessment and plan: see above (4) Bronchitis Current Visit: Yes Status: Acute Assessment and plan: see above (5) Dementia Current Visit: Yes Status: Chronic Assessment and plan: continue home donepezil and memantine Qualifiers: Dementia type: vascular dementia Dementia behavioral disturbance: without behavioral disturbance Qualified Code(s): F01.50 - Vascular dementia without behavioral disturbance (6) DVT prophylaxis Current Visit: Yes Status: Acute Assessment and plan: lovenox - Subjective Interval history: Ms Obrien is an 87 yo F with dementia, COPD, non-oxygen dependent, TIA, and hypertension presented with SOB. She was recently discharged on 10/21/17 for PNA and completed treatement with Levaquin at [facility]. Patient today, according to daughter, is back to baseline mental status. Patient is comfortable and expresses that she's ready to go. Patient denies difficulty breathing, fever, chills, weight loss, chest pain, diaphoresis, PND, orthopnea. Overnight patient had HTN episode and was given hydralazine and had a flushing reaction. - Constitutional Vitals: Temp Pulse Resp BP Pulse Ox 98.4 F 107 15 177/96 95 11/13/17 15:21 11/13/17 15:21 11/13/17 15:21 11/13/17 15:21 11/13/17 15:21 General appearance: Present: cooperative, A&O X 1, pleasant, no acute distress, answers questions appropriately - Respiratory Respiratory exam: Present: CTAB. Absent: accessory muscle use, rales, rhonchi, wheezes - Cardiovascular Cardiovascular exam: Present: RRR, +S1, +S2. Absent: diastolic murmur, gallop, rubs, systolic murmur - Extremities Exam Extremities exam: Present: warm, radial pulses palpable and symmetrical. Absent : calf tenderness, cyanotic, pedal edema - Psychiatric Psychiatric exam: Present: normal affect, normal mood Internal Medicine: Result - Labs CBC & Chem 7: 11/12/17 04:28 11/12/17 04:28 Consult Discharge Plan - Plan Referrals: Viola Chan [Primary Care Provider] - <Harvey Ayers - Last Filed: 11/13/17 19:11> Date of Encounter: 11/13/17 - Assessment and plan (1) Acute on chronic respiratory failure with hypoxemia Current Visit: Yes Status: Acute (2) Acute exacerbation of chronic obstructive airways disease Current Visit: Yes Status: Acute (3) Right lower lobe pneumonia Current Visit: Yes Status: Acute Qualifiers: Pneumonia type: due to unspecified organism Qualified Code(s): J18.1 - Lobar pneumonia, unspecified organism (4) Hypertension Current Visit: Yes Status: Chronic Qualifiers: Hypertension type: essential hypertension Qualified Code(s): I10 - Essential (primary) hypertension (5) Hyperlipidemia Current Visit: No Status: Chronic Qualifiers: Hyperlipidemia type: mixed hyperlipidemia Qualified Code(s): E78.2 - Mixed hyperlipidemia (6) Dementia Current Visit: Yes Status: Chronic Qualifiers: Dementia type: vascular dementia Dementia behavioral disturbance: without behavioral disturbance Qualified Code(s): F01.50 - Vascular dementia without behavioral disturbance - Constitutional Vitals: Temp Pulse Resp BP Pulse Ox 98.4 F 107 16 169/123 95 11/13/17 15:21 11/13/17 15:21 11/13/17 15:45 11/13/17 17:33 11/13/17 15:45 Internal Medicine: Result - Labs CBC & Chem 7: 11/12/17 04:28 11/12/17 04:28 - Attending Attestation I examined this patient and my medical decision-making was reviewed with the Resident Physician on 11/13/17. I agree with the documented findings, disposition and treatment plan as described except to the extent set forth below. Ms Obrien is currently admitted for resp failure and UTI. She remains moderate to high risk due to potential for worsening clinical status. Ms Obrien feels OK. She is still somewhat dyspneic but feels she is improving. Heartrate elevated today but she has been off her beta bhargavi. Exam Alert. Comfortable Mucus membranes dry Heart not tachy Some wheeze noted I/P 1. COPD exac 2. Resp failure Further diagnoses and plan as above.
[2017-11-13] MEDS: amLODIPine 5 MG TABLET PO PRN (16:55)
[2017-11-14] MEDS: MethylPREDNISolone 40 MG/ML VIAL IVP SCH ×3 (00:14→12:22)
[2017-11-14] MEDS: Ipratropium/Albuterol Neb 3 ML IH SCH ×6 (04:19→23:28)
[2017-11-14] MEDS: *HR* Enoxaparin 40 MG/0.4 ML SYRINGE SQ SCH (06:59)
[2017-11-14] MEDS: Budesonide/Formoterol 80/4.5 MDI IH SCH ×2 (08:13→20:16)
[2017-11-14] MEDS: Propranolol LA (24 HR) 60 MG CAP.SA.24H PO SCH (08:37)
[2017-11-14] MEDS ORDERED: Levofloxacin 750 MG/150 ML 750 MG/150 ML BAG IVPB SCH (09:00)
[2017-11-14] MEDS ORDERED: levoFLOXacin 750 MG TABLET PO SCH (09:00)
[2017-11-14] MEDS: NAMENDA 21 MG PO SCH (09:45)
[2017-11-14] MEDS: amLODIPine 5 MG TABLET PO PRN (12:22)
[2017-11-14 13:46] VITALS: BP 161/91
--- NOTE | 2017-11-14 15:32 | Discharge Summary ---
Addendum entered and electronically signed by Edu Nuñez DO 11/14/17 16:45: Patient to go to [facility], prior to returning to [facility] Original Note: <Edu Nuñez - Last Filed: 11/14/17 16:31> Date of Encounter: 11/14/17 Time of Encounter: 15:25 - Discharge Diagnosis (1) Hypertension Priority: Secondary Status: Chronic Qualifiers: Hypertension type: essential hypertension Qualified Code(s): I10 - Essential (primary) hypertension (2) Acute exacerbation of chronic obstructive airways disease Priority: Primary Status: Acute (3) Acute on chronic respiratory failure with hypoxemia Priority: Secondary Status: Acute (4) Bronchitis Priority: Secondary Status: Acute (5) Dementia Priority: Secondary Status: Chronic Qualifiers: Dementia type: vascular dementia Dementia behavioral disturbance: without behavioral disturbance Qualified Code(s): F01.50 - Vascular dementia without behavioral disturbance (6) DVT prophylaxis Priority: Secondary Status: Acute - Discharge Medications Prescriptions: Azithromycin [Azithromycin 6-Tab Pack] 250 mg PO PER PKG DI #6 tab Budesonide/Formoterol 80/4.5 [Symbicort 80/4.5] 1 puff IH BID #1 unit Losartan [Cozaar] 100 mg PO DAILY 30 Days #30 tablet Terazosin [Hytrin] 10 mg PO HS 30 Days #30 capsule Home Medications: Clopidogrel [Plavix] 75 mg PO DAILY 12/10/15 [History] Cyanocobalamin (Vitamin B-12) [B-12 Compliance] 1,000 mcg IM QMONTH 12/10/15 [ History] Felodipine [Felodipine ER] 2.5 mg PO DAILY 12/10/15 [History] Furosemide [Lasix] 20 mg PO DAILY 12/10/15 [History] Simvastatin [Zocor] 20 mg PO HS 12/10/15 [History] Albuterol Neb [Proventil Neb] 2.5 mg IH Q6H PRN 07/07/16 [History] DiphenhydraMINE [Benadryl] 25 mg PO HS PRN 10/16/17 [History] Donepezil HCl [Aricept] 10 mg PO HS 10/16/17 [History] Memantine HCl [Namenda Xr] 21 mg PO DAILY 10/16/17 [History] Propranolol LA (24 HR) [Inderal LA] 60 mg PO DAILY 10/16/17 [History] Ascorbate Calcium [Calcium Ascorbate] 500 mg PO DAILY 11/12/17 [History] Guaifenesin [Mucinex] 600 mg PO BID 11/12/17 [History] Magnesium Hydroxide [Milk of Magnesia] 400 mg PO DAILY PRN 11/12/17 [History] Multivit,Th Iron,Other Min [Thera-M] 1 each PO DAILY 11/12/17 [History] Oseltamivir [Tamiflu] 75 mg PO DAILY 11/12/17 [History] Azithromycin [Azithromycin 6-Tab Pack] 250 mg PO PER PKG DI #6 tab 11/14/17 [Rx] Budesonide/Formoterol 80/4.5 [Symbicort 80/4.5] 1 puff IH BID #1 unit 11/14/17 [Rx] Losartan [Cozaar] 100 mg PO DAILY 30 Days #30 tablet 11/14/17 [Rx] Terazosin [Hytrin] 10 mg PO HS 30 Days #30 capsule 11/14/17 [Rx] Allergies/Adverse Reactions: 3 Allergy/AdvReac Type Severity Reaction Status Date / Time No Known Allergies Allergy Verified 11/11/17 11:19 Date of admission: 11/11/17 16:32 Primary care physician: Viola Chan Consults: 11/12/17 11:45 Consult to Riveting Machine Operator [CONS] Routine Reason for SW Consult: Patient from [facility] SNF/rehab - Patient Status Disposition: Transfer SNF Condition: Fair - Discharge Instructions Follow Up With: Viola Chan [Primary Care Provider] - Additional Instructions: Finish course of antibiotics. use O2 as needed. Patient needs to be brought to [address] [place] [address]) - Diet and Activity Activity: increase activity as tolerated Diet: low salt diet Hospital course: Ms. Obrien is a 87 year old female with PMHx of dementia, COPD non-oxygen dependent, TIA, hypertension, and recent discharged from [facility] for PNA on presented to [facility] ED from E[facility] SOB at rest. In the ED CXR was taen and shown that the previous PNA in the right middle lower lobe was improving. Clinically patient was afebrile, normatensive, and had no leukocytosis. EKG showed normal sinus rhythm. She was admitted for further evaluation. When patient was seen inpatient, patient was noted to have respiration with accessory muscles but remained hemodynamically stable and slowly weaned off of O2. As well as respiratory support, patient was started on symbicort. Patient started having uncontrolled HTN while admitted. During the first night, patient was given hydralazine for BP controlled but had a flushing reaction to it. Instead she was started on Norvasc PRN, and her home terazosin was increased to 10, losartan increased to 100 mg, and continue on her home dose of propanolol 60. Patient's BP remained stable after medication adjustment. Patient is discharged with Azithromycin, symbicort, increased doses of terazosin , and increased dose of losartan. Patient to have follow up appointment with PCP for med adjustment within 1 week. - Time Spent with Patient Total time spent providing and/or coordinating discharge services: - Constitutional Vitals: Temp Pulse Resp BP Pulse Ox 97.9 F 93 20 161/91 97 11/14/17 13:36 11/14/17 13:36 11/14/17 13:36 11/14/17 13:36 11/14/17 13:36 General appearance: Present: cooperative, A&O X 1, pleasant, no acute distress, answers questions appropriately - Respiratory Respiratory exam: Present: prolonged expiratory phase, wheezes. Absent: accessory muscle use, chest wall tenderness, decreased breath sounds, rales, respiratory distress, rhonchi, stridor, tachypnea - Cardiovascular Cardiovascular exam: Present: RRR, +S1, +S2. Absent: diastolic murmur, gallop, rubs, systolic murmur - Extremities Exam Extremities exam: Present: warm, radial pulses palpable and symmetrical. Absent : calf tenderness, cyanotic, pedal edema - Psychiatric Psychiatric exam: Present: normal affect, normal mood <Harvey Ayers - Last Filed: 11/14/17 18:20> Date of Encounter: 11/14/17 - Discharge Diagnosis (1) Acute on chronic respiratory failure with hypoxemia Priority: Primary Status: Acute (2) Acute exacerbation of chronic obstructive airways disease Status: Resolved (3) Right lower lobe pneumonia Priority: Secondary Status: Resolved Qualifiers: Pneumonia type: due to unspecified organism Qualified Code(s): J18.1 - Lobar pneumonia, unspecified organism (4) Hypertension Status: Chronic Qualifiers: Hypertension type: essential hypertension Qualified Code(s): I10 - Essential (primary) hypertension (5) Hyperlipidemia Priority: Secondary Status: Chronic Qualifiers: Hyperlipidemia type: mixed hyperlipidemia Qualified Code(s): E78.2 - Mixed hyperlipidemia (6) Dementia Status: Chronic Qualifiers: Dementia type: vascular dementia Dementia behavioral disturbance: without behavioral disturbance Qualified Code(s): F01.50 - Vascular dementia without behavioral disturbance Date of admission: 11/11/17 16:32 Primary care physician: Viola Chan Consults: 11/12/17 11:45 Consult to Riveting Machine Operator [CONS] Routine Reason for SW Consult: Patient from [facility] SNF/rehab Hospital course: Ms. Obrien is a 87 year old female - Time Spent with Patient Total time spent providing and/or coordinating discharge services: 38min - Constitutional Vitals: Temp Pulse Resp BP Pulse Ox 98.2 F 88 20 161/91 94 11/14/17 15:00 11/14/17 15:00 11/14/17 16:22 11/14/17 16:22 11/14/17 16:22 - Attending Attestation I examined this patient and my medical decision-making was reviewed with the Resident Physician on 11/14/17. I agree with the documented findings, disposition and treatment plan as described except to the extent set forth below. Ms Obrien has been admitted for acute resp failure and COPD exac. She is now baseline breathing but needs additional rehab. She is afebrile with stable vitals. She is ready for discharge today. Exam alert> Comfortable Mucus membranes dry Heart distant Lungs clear at this time Abd soft Plan D/C to SNF
--- NOTE | 2017-11-14 16:47 | Physician Discharge Referral ---
ExtendedCare Referral Info Transfer To: [facility] Provider in Charge after Transfer: PCP Institutional Level of Care: Skilled - Diagnosis (1) Hypertension Priority: Secondary Status: Chronic (2) Acute exacerbation of chronic obstructive airways disease Priority: Primary Status: Acute (3) Acute on chronic respiratory failure with hypoxemia Priority: Secondary Status: Acute (4) Bronchitis Priority: Secondary Status: Acute (5) Dementia Priority: Secondary Status: Chronic (6) DVT prophylaxis Priority: Secondary Status: Acute - Transfer Medications Prescriptions: Azithromycin [Azithromycin 6-Tab Pack] 250 mg PO PER PKG DI #6 tab Budesonide/Formoterol 80/4.5 [Symbicort 80/4.5] 1 puff IH BID #1 unit Losartan [Cozaar] 100 mg PO DAILY 30 Days #30 tablet Terazosin [Hytrin] 10 mg PO HS 30 Days #30 capsule Home Medications: Clopidogrel [Plavix] 75 mg PO DAILY 12/10/15 [History] Cyanocobalamin (Vitamin B-12) [B-12 Compliance] 1,000 mcg IM QMONTH 12/10/15 [ History] Felodipine [Felodipine ER] 2.5 mg PO DAILY 12/10/15 [History] Furosemide [Lasix] 20 mg PO DAILY 12/10/15 [History] Simvastatin [Zocor] 20 mg PO HS 12/10/15 [History] Albuterol Neb [Proventil Neb] 2.5 mg IH Q6H PRN 07/07/16 [History] DiphenhydraMINE [Benadryl] 25 mg PO HS PRN 10/16/17 [History] Donepezil HCl [Aricept] 10 mg PO HS 10/16/17 [History] Memantine HCl [Namenda Xr] 21 mg PO DAILY 10/16/17 [History] Propranolol LA (24 HR) [Inderal LA] 60 mg PO DAILY 10/16/17 [History] Ascorbate Calcium [Calcium Ascorbate] 500 mg PO DAILY 11/12/17 [History] Guaifenesin [Mucinex] 600 mg PO BID 11/12/17 [History] Magnesium Hydroxide [Milk of Magnesia] 400 mg PO DAILY PRN 11/12/17 [History] Multivit,Th Iron,Other Min [Thera-M] 1 each PO DAILY 11/12/17 [History] Oseltamivir [Tamiflu] 75 mg PO DAILY 11/12/17 [History] Azithromycin [Azithromycin 6-Tab Pack] 250 mg PO PER PKG DI #6 tab 11/14/17 [Rx] Budesonide/Formoterol 80/4.5 [Symbicort 80/4.5] 1 puff IH BID #1 unit 11/14/17 [Rx] Losartan [Cozaar] 100 mg PO DAILY 30 Days #30 tablet 11/14/17 [Rx] Terazosin [Hytrin] 10 mg PO HS 30 Days #30 capsule 11/14/17 [Rx] Allergies/Adverse Reactions: 3 Allergy/AdvReac Type Severity Reaction Status Date / Time No Known Allergies Allergy Verified 11/11/17 11:19 - Respiratory Orders Smoking Cessation: Smoking cessation has been advised. For more information, call the [place] Tobacco Quit Line at 3-027-ZWJTNOW. CERTIFICATION: I certify that the transfer of the above named patient to an Extended Care Facility is necessary for the continuing treatment of the diagnosis listed. The above information is true and accurate reflection of patient's current condition. Confidential - Redisclosure prohibited without a patient's written consent.
== END 2017-11-14 19:45 | DRG 190 ==
LOC: EMEROO 11:10 → 2NENU 11:10 → SUATTDRO 16:32 → 2NENU 16:33
PROVIDERS: ADMIT Internal Medicine; ATTEND Internal Medicine